=== PATIENT | male | born 1995 | race Caucasian/White ===

== ENCOUNTER 2019-08-06 17:31 | Emergency (ER) | payer BC ==
--- NOTE | 2019-08-06 17:43 | EDM.PDOC ---
ED HPI GENERAL MEDICAL PROBLEM - General Chief Complaint: Laceration Stated Complaint: CUT ON FINGER Time Seen by Provider: 08/06/19 17:43 Source of Information: Reports: Patient History Limitations: Reports: No Limitations - History of Present Illness INITIAL COMMENTS - FREE TEXT/NARRATIVE: HISTORY AND PHYSICAL: History of present illness: Patient is a 23-year-old male presents the ED with complaint of right middle finger laceration. He is approximately 7 hours prior to ED arrival patient cut his finger while putting away his pocket knife. He is uncertain of last tetanus. Records show that tetanus has been updated in the last 5 years. Review of systems: As per history of present illness and below otherwise all systems reviewed and negative. Past medical history: As per history of present illness and as reviewed below otherwise noncontributory. Surgical history: As per history of present illness and as reviewed below otherwise noncontributory. Social history: No reported history of drug or alcohol abuse. Family history: As per history of present illness and as reviewed below otherwise noncontributory. Physical exam: General: Patient sitting comfortably in no acute distress and nontoxic appearing HEENT: Atraumatic, normocephalic, pupils reactive, negative for conjunctival pallor or scleral icterus, mucous membranes moist, throat clear, neck supple, nontender, trachea midline. No meningeal signs. Lungs: Clear to auscultation, breath sounds equal bilaterally, chest nontender. Heart: S1S2, regular, negative for clicks, rubs, or overt murmur. Abdomen: Soft, nondistended, nontender. Negative for masses or hepatosplenomegaly. Negative for costovertebral tenderness. No rigidity, rebound , guarding. Pelvis: Stable nontender. Genitourinary: Deferred. Rectal: Deferred. Extremities: Flap-like laceration to the distal pad of the right third digit. Atraumatic, negative for cords or calf pain. Neurovascular unremarkable. Neuro: Awake, alert, oriented. Cranial nerves II through XII unremarkable. Cerebellum unremarkable. Motor and sensory unremarkable throughout. Exam nonfocal. Notes: Diagnostics: none Therapeutics: Laceration repair, see procedure note Prescriptions: Impression: Laceration Plan: Keep the area clean and dry as instructed Follow-up for suture removal in 7 to 10 days Return To ED as needed as discussed Definitive disposition and diagnosis as appropriate pending reevaluation and review of above. - Related Data Allergies Allergy/AdvReac Type Severity Reaction Status Date / Time amoxicillin [Amoxicillin] Allergy Itching Verified 08/06/19 17:38 Home Meds: Home Meds QUEtiapine [SEROquel] 50 mg PO BEDTIME 08/06/19 [History] Past Medical History HEENT History: Reports: Otitis Media Other HEENT History: right eye surgery for lazy eye Gastrointestinal History: Reports: None Musculoskeletal History: Reports: Fracture Neurological History: Reports: Concussion, Migraines, Seizure Psychiatric History: Reports: ADHD, Addiction, Anxiety, Depression, Suicidal Ideation - Infectious Disease History Infectious Disease History: Reports: Chicken Pox - Past Surgical History Musculoskeletal Surgical History: Reports: ORIF, Other (See Below) Social & Family History - Family History Family Medical History: Noncontributory - Caffeine Use Caffeine Use: Reports: Soda ED ROS GENERAL - Review of Systems Review Of Systems: Comprehensive ROS is negative, except as noted in HPI. ED EXAM, SKIN/RASH Exam: See Below (see dictation) ED SKIN PROCEDURES - Laceration/Wound Repair Right Digit - 3rd (Middle) Appearance: Superficial, Subcutaneous, Linear, Clean Distal NVT: Neuro & Vascular Intact, No Tendon Injury Anesthetic Type: Digital Local Anesthesia - Lidocaine (Xylocaine): 1% Plain Local Anesthetic Volume: 5cc Skin Prep: Chlorhexidine (Hibiciens), Saline Saline Irrigation (cc's): 250 Exploration/Debridement/Repair: Wound Explored, In a Bloodless Field, Explored to Base, No Foreign Material Found Closed with: Sutures Lac/Wound length In cm: 1.5 (cm) Suture Size: 5-0 # of Sutures: 5 Course - Vital Signs Last Recorded V/S: Last Vital Signs Temp 97.5 F 08/06/19 17:39 Pulse 105 H 08/06/19 17:39 Resp 17 08/06/19 17:39 BP 123/76 08/06/19 17:39 Pulse Ox 97 08/06/19 17:39 - Orders/Labs/Meds Meds: Medications Discontinued Medications Generic Name Dose Route Start Last Admin Trade Name Ashley PRN Reason Stop Dose Admin Lidocaine HCl 5 ml 08/06/19 17:53 Xylocaine-Mpf 1% INJECT 08/06/19 17:54 ONETIME ONE Departure - Departure Time of Disposition: 18:25 Disposition: Home, Self-Care 01 Condition: Good Clinical Impression: Laceration - Discharge Information Referrals: Irwin Berg MD [Primary Care Provider] - Forms: ED Department Discharge Additional Instructions: The following information is given to patients seen in the emergency department who are being discharged to home. This information is to outline your options for follow-up care. We provide all patients seen in our emergency department with a follow-up referral. The need for follow-up, as well as the timing and circumstances, are variable depending upon the specifics of your emergency department visit. If you don't have a primary care physician on staff, we will provide you with a referral. We always advise you to contact your personal physician following an emergency department visit to inform them of the circumstance of the visit and for follow-up with them and/or the need for any referrals to a consulting specialist. The emergency department will also refer you to a specialist when appropriate. This referral assures that you have the opportunity for follow-up care with a specialist. All of these measure are taken in an effort to provide you with optimal care, which includes your follow-up. Under all circumstances we always encourage you to contact your private physician who remains a resource for coordinating your care. When calling for follow-up care, please make the office aware that this follow-up is from your recent emergency room visit. If for any reason you are refused follow-up, please contact the [facility] Emergency Department at and asked to speak to the emergency department charge nurse. [facility] [address] [place] [id number] [id number] Keep the area clean and dry as instructed Follow-up for suture removal in 7 to 10 days Return To ED as needed as discussed Sepsis Event Note - Evaluation Sepsis Screening Result: No Definite Risk - Focused Exam Vital Signs: Vital Signs Temp Pulse Resp BP Pulse Ox 08/06/19 17:39 97.5 F 105 H 17 123/76 97 Date Exam was Performed: 08/06/19 Time Exam was Performed: 18:24
[2019-08-06 18:55] VITALS: BP 128/69; PULSE 83
== END 2019-08-06 18:35 | disposition home or self-care (01) ==
LOC: MW.ED 17:31
DX: S61.212A Laceration without foreign body of right middle finger without damage to nail, initial encounter (principal); Z88.1 Allergy status to other antibiotic agents; W26.0XXA Contact with knife, initial encounter
CPT/HCPCS: 12001; 99282

== ENCOUNTER 2019-08-13 12:45 | Emergency (ER) | payer BC ==
--- NOTE | 2019-08-13 12:58 | EDM.PDOC ---
ED HPI GENERAL MEDICAL PROBLEM - General Chief Complaint: Chest Pain Stated Complaint: CHEST PAIN Time Seen by Provider: 08/13/19 12:47 Source of Information: Reports: Patient History Limitations: Reports: No Limitations - History of Present Illness INITIAL COMMENTS - FREE TEXT/NARRATIVE: HISTORY AND PHYSICAL: History of present illness: Patient is a 23-year-old male who presents to the emergency room with complaints of chest pain, shortness of breath, cough and body aches x3 days. He reports he has been using [id number] medications without much relief. Patient denies any neck pain/stiffness, change in vision, syncope or near syncope. Denies any back pain or shortness of breath. Denies any abdominal pain , nausea, vomiting, diarrhea, constipation or dysuria. Patient has been eating and drinking appropriately. Review of systems: As per history of present illness and below otherwise all systems reviewed and negative. Past medical history: As per history of present illness and as reviewed below otherwise noncontributory. Surgical history: As per history of present illness and as reviewed below otherwise noncontributory. Social history: See social history for further information Family history: As per history of present illness and as reviewed below otherwise noncontributory. Physical exam: General: Well-developed and well-nourished 23-year-old male. Alert and oriented. Nontoxic-appearing and in no acute distress. HEENT: Atraumatic, normocephalic, pupils equal and reactive bilaterally, negative for conjunctival pallor or scleral icterus, mucous membranes moist, TMs normal bilaterally, throat clear, neck supple, nontender, trachea midline. No drooling or trismus noted. No meningeal signs. No hot potato voice noted. Lungs: Faint wheezing noted to the left posterior base slightly diminished otherwise clear to auscultation, breath sounds equal bilaterally, chest nontender. Heart: S1S2, regular rate and rhythm without overt murmur Abdomen: Soft, nondistended, nontender. Skin: Intact, warm, dry. No lesions or rashes noted. Extremities: Atraumatic, moves all extremities per self without difficulty or deficits, negative for cords or calf pain. Neurovascular unremarkable. Neuro: Awake, alert, oriented. Cranial nerves II through XII unremarkable. Cerebellum unremarkable. Motor and sensory unremarkable throughout. Exam nonfocal. Notes: Diagnostics are unremarkable. Medication and supportive care measures were reviewed and discussed. Voices understanding and is agreeable to plan of care. Denies any further questions or concerns at this time. Diagnostics: CXR, Influenza, EKG Therapeutics: Toradol Prescription: The pack and pro-air inhaler Impression: Bronchitis Plan: 1. Stop Smoking. standard contact precautions (covering mouth while coughing, avoid sharing drinking cups and eating utensils). Please make sure you're doing good handwashing 2. Please take medications as we discussed 3. Supportive care measures such as Tylenol and/or ibuprofen for pain and fever management.Encourage small frequent sips of fluids to prevent dehydration. 4. Follow-up with your mobile heavy equipment operator in the next 1-2 days. Return to the ED as needed and as discussed. Definitive disposition and diagnosis as appropriate pending reevaluation and review of above. Generalized Pain Score (Numeric/FACES): 7 - Related Data Allergies Allergy/AdvReac Type Severity Reaction Status Date / Time amoxicillin [Amoxicillin] Allergy Itching Verified 08/06/19 17:38 Home Meds: Home Meds QUEtiapine [SEROquel] 50 mg PO BEDTIME 08/06/19 [History] Past Medical History HEENT History: Reports: Otitis Media Other HEENT History: right eye surgery for lazy eye Gastrointestinal History: Reports: None Musculoskeletal History: Reports: Fracture Neurological History: Reports: Concussion, Migraines, Seizure Psychiatric History: Reports: ADHD, Addiction, Anxiety, Depression, Suicidal Ideation - Infectious Disease History Infectious Disease History: Reports: Chicken Pox - Past Surgical History Musculoskeletal Surgical History: Reports: ORIF, Other (See Below) Social & Family History - Family History Family Medical History: Noncontributory - Caffeine Use Caffeine Use: Reports: Soda ED ROS GENERAL - Review of Systems Review Of Systems: Comprehensive ROS is negative, except as noted in HPI. ED EXAM, GENERAL - Physical Exam Exam: See Below (See dictation) Course - Vital Signs Last Recorded V/S: Last Vital Signs Temp 99.1 F 08/13/19 12:54 Pulse 118 H 08/13/19 12:54 Resp 20 08/13/19 12:54 BP 127/79 08/13/19 12:54 Pulse Ox 96 08/13/19 12:54 - Orders/Labs/Meds Orders: Active Orders 24 hr Category Date Time Status EKG Documentation Completion [RC] STAT Care 08/13/19 12:47 Active Meds: Medications Discontinued Medications Generic Name Dose Route Start Last Admin Trade Name Ashley PRN Reason Stop Dose Admin Ketorolac Tromethamine 60 mg 08/13/19 13:26 08/13/19 13:45 Toradol IM 08/13/19 13:27 60 mg ONETIME ONE Administration Departure - Departure Time of Disposition: 14:13 Disposition: Home, Self-Care 01 Clinical Impression: Bronchitis Instructions: Upper Respiratory Infection, Adult, [id number] Referrals: PCP,Unobtain [Primary Care Provider] - Forms: ED Department Discharge Additional Instructions: The following information is given to patients seen in the emergency department who are being discharged to home. This information is to outline your options for follow-up care. We provide all patients seen in our emergency department with a follow-up referral. The need for follow-up, as well as the timing and circumstances, are variable depending upon the specifics of your emergency department visit. If you don't have a primary care physician on staff, we will provide you with a referral. We always advise you to contact your personal physician following an emergency department visit to inform them of the circumstance of the visit and for follow-up with them and/or the need for any referrals to a consulting specialist. The emergency department will also refer you to a specialist when appropriate. This referral assures that you have the opportunity for follow-up care with a specialist. All of these measure are taken in an effort to provide you with optimal care, which includes your follow-up. Under all circumstances we always encourage you to contact your private physician who remains a resource for coordinating your care. When calling for follow-up care, please make the office aware that this follow-up is from your recent emergency room visit. If for any reason you are refused follow-up, please contact the [facility] Emergency Department at and asked to speak to the emergency department charge nurse. [facility] [address] [place] [id number] [address] 1. Stop smoking. Please follow standard contact precautions (covering mouth while coughing, avoid sharing drinking cups and eating utensils). Please make sure you're doing good handwashing 2. Please take medications as we discussed 3. Supportive care measures such as Tylenol and/or ibuprofen for pain and fever management.Encourage small frequent sips of fluids to prevent dehydration. 4. Follow-up with your mobile heavy equipment operator in the next 1-2 days. Return to the ED as needed and as discussed. Sepsis Event Note - Focused Exam Vital Signs: Vital Signs Temp Pulse Resp BP Pulse Ox 08/13/19 12:54 99.1 F 118 H 20 127/79 96 Date Exam was Performed: 08/13/19 Time Exam was Performed: 14:14 - My Orders Last 24 Hours: My Active Orders 08/13/19 12:47 EKG Documentation Completion [RC] STAT - Assessment/Plan Last 24 Hours: My Active Orders 08/13/19 12:47 EKG Documentation Completion [RC] STAT
[2019-08-13] MEDS ORDERED: Ketorolac 60 MG/2 ML SDV IM ONE (13:26)
--- NOTE | 2019-08-13 13:47 | CR ---
Chest: 2 views of the chest were obtained. Comparison: Prior chest x-ray of 03/26/13. Heart size and mediastinum are normal. Lungs are clear. Bony structures are unremarkable. Impression: 1. Nothing acute is seen on 2 view chest x-ray. Diagnostic code #1 This report was dictated in [place] Standard Time
[2019-08-13 14:40] VITALS: BP 111/57; PULSE 100
== END 2019-08-13 14:46 | disposition home or self-care (01) ==
LOC: MW.ED 12:45
DX: J40 Bronchitis, not specified as acute or chronic (principal); Z88.1 Allergy status to other antibiotic agents
CPT/HCPCS: 71046; 87804; 93005; 96372; 99285; J1885; 99283

== ENCOUNTER 2020-01-10 18:51 | Emergency (ER) | payer OTHER ==
--- NOTE | 2020-01-10 19:43 | EDM.PDOC ---
ED HPI GENERAL MEDICAL PROBLEM - General Chief Complaint: General Stated Complaint: MEDICAL CLEARANCE Time Seen by Provider: 01/10/20 19:02 Source of Information: Reports: Patient History Limitations: Reports: No Limitations - History of Present Illness INITIAL COMMENTS - FREE TEXT/NARRATIVE: HISTORY AND PHYSICAL: History of present illness: Patient is a 24-year-old male who presents to the emergency room with law enforcement for a involuntary committal for alcohol and drug abuse. Law enforcement currently has a hold on him for polysubstance abuse. Law enforcement states that there was a court order as the patient has been injecting heroin, smoking methamphetamine, marijuana, prescription pain pills and abusing alcohol (last used yesterday). Patient currently offers no concerns or complaints. He is alert, oriented and answering questions appropriately. Review of systems: As per history of present illness and below otherwise all systems reviewed and negative. Past medical history: As per history of present illness and as reviewed below otherwise noncontributory. Surgical history: As per history of present illness and as reviewed below otherwise noncontr ibutory. Social history: See social history for further information Family history: As per history of present illness and as reviewed below otherwise noncontributory. Physical exam: General: Well-developed and well-nourished 24-year-old male. Alert and oriented. Answering questions appropriately. Nontoxic-appearing and in no acute distress. HEENT: Atraumatic, normocephalic, pupils equal and reactive bilaterally, negative for conjunctival pallor or scleral icterus, mucous membranes moist, TMs normal bilaterally, throat clear, neck supple, nontender, trachea midline. No drooling or trismus noted. No meningeal signs. No hot potato voice noted. Lungs: Clear to auscultation, breath sounds equal bilaterally, chest nontender. Heart: S1S2, regular rate and rhythm without overt murmur Abdomen: Soft, nondistended, nontender. Negative for masses or hepatosplenomegaly. Negative for costovertebral tenderness. Skin: Multiple superficial scratch rivers to upper extremities bilaterally. Intact, warm, dry. No lesions or rashes noted. Extremities: Atraumatic, moves all extremities per self without difficulty or deficits, negative for cords or calf pain. Neurovascular unremarkable. Neuro: Awake, alert, oriented. Cranial nerves II through XII unremarkable. Cerebellum unremarkable. Motor and sensory unremarkable throughout. Exam nonfocal. Notes: Patient has multiple superficial scratch rivers to bilateral arms. He states this was self-inflicted with a needle but was not intended to cause any self- harm. Reviewing the judicial order the letter from the licensed addiction counselor states that the patient was discharged from [facility] on my not after completing 28-day course of inpatient treatment. He was mandated to complete outpatient treatment which he had scheduled appointments, he missed his appointment with the counselor. The father became very concerned as he is "in fear he will overdose on drugs". Law enforcement filed for an application for modification of alternative treatment order. Lab work is unremarkable, drug screening is negative even though the patient states he used multiple substances yesterday. 2049: [facility] consulted on this patient- they do not offer alcohol and drug treatment programs 2050: [facility] unavailable beds 2051: [facility] in [place] consulted; unable to take patients on weekends. 2099: [facility] does not provide drug treatment programs. 2104: [facility] was consulted, they do not provide drug treatment programs. Law enforcement was made aware that we are having difficulty with finding placement for sole purpose of drug treatment programming. He did call his lieutenant who requested that the patient be brought back to the [place] [facility] and they will call in the morning to find placement for him. He did have lab work done here which was within normal limits. His vital signs have remained stable. He has been alert, oriented and answering questions appropriately. He can be discharged to the custody of law enforcement. Diagnostics: CBC, CMP, EKG, TSH, Acetaminophen, Salicylate, Drug Screen, UA, ETOH Therapeutics: None Prescription: None Impression: Encounter for medical screening exam Polysubstance abuse Plan: 1. Lab work that was done today is within normal limits. Vital signs remained stable. We did attempt to call facilities in [place] and [place] in [place], all of which did not have any beds available at this time. Please continue to pursue a treatment program for patient. 2. Continue to monitor patient and if any new symptoms develop or patient status should change, please return to the emergency room. Definitive disposition and diagnosis as appropriate pending reevaluation and review of above. - Related Data Allergies Allergy/AdvReac Type Severity Reaction Status Date / Time amoxicillin [Amoxicillin] Allergy Itching Verified 06/19/20 19:28 Home Meds: Home Meds QUEtiapine [SEROquel] 50 mg PO BEDTIME 08/06/19 [History] Past Medical History HEENT History: Reports: Otitis Media Other HEENT History: right eye surgery for lazy eye Gastrointestinal History: Reports: None Musculoskeletal History: Reports: Fracture Neurological History: Reports: Concussion, Migraines, Seizure Other Neuro History: Epilepsy, no meds undercontrol Psychiatric History: Reports: ADHD, Addiction, Anxiety, Depression, Suicidal Ideation - Infectious Disease History Infectious Disease History: Reports: Chicken Pox - Past Surgical History Musculoskeletal Surgical History: Reports: ORIF, Other (See Below) Social & Family History - Family History Family Medical History: Noncontributory - Tobacco Use Smoking Status *Q: Current Every Day Smoker Years of Tobacco use: 13 Packs/Tins Daily: 0.2 - Caffeine Use Caffeine Use: Reports: None - Recreational Drug Use Recreational Drug Type: Reports: Benzodiazepines, Heroin, Marijuana/Hashish, Methamphetamine ED ROS GENERAL - Review of Systems Review Of Systems: Comprehensive ROS is negative, except as noted in HPI. ED EXAM, GENERAL - Physical Exam Exam: See Below (See dictation) Course - Vital Signs Last Recorded V/S: Last Vital Signs Temp 97.8 F 01/10/20 19:24 Pulse 71 01/10/20 21:03 Resp 14 01/10/20 21:03 BP 137/83 01/10/20 21:03 Pulse Ox 99 01/10/20 21:03 - Orders/Labs/Meds Orders: Active Orders 24 hr Category Date Time Status EKG Documentation Completion [RC] STAT Care 01/10/20 19:32 Active Labs: Laboratory Tests 01/10/20 01/10/20 01/10/20 Range/Units 19:51 19:51 20:30 WBC 8.04 (4.0-11.0) K/uL RBC 4.55 (4.50-5.90) M/uL Hgb 13.5 (13.0-17.0) g/dL Hct 40.0 (38.0-50.0) % MCV 87.9 (80.0-98.0) fL MCH 29.7 (27.0-32.0) pg MCHC 33.8 (31.0-37.0) g/dL RDW Std Deviation 43.5 (28.0-62.0) fl RDW Coeff of Lore 14 (11.0-15.0) % Plt Count 315 (150-400) K/uL MPV 9.50 (7.40-12.00) fL Neut % (Auto) 46.1 L (48.0-80.0) % Lymph % (Auto) 38.2 (16.0-40.0) % [place] % (Auto) 13.2 (0.0-15.0) % Eos % (Auto) 2.1 (0.0-7.0) % Baso % (Auto) 0.4 (0.0-1.5) % Neut # (Auto) 3.7 (1.4-5.7) K/uL Lymph # (Auto) 3.1 H (0.6-2.4) K/uL [place] # (Auto) 1.1 H (0.0-0.8) K/uL Eos # (Auto) 0.2 (0.0-0.7) K/uL Baso # (Auto) 0.0 (0.0-0.1) K/uL Nucleated RBC % 0.0 /100WBC Nucleated RBCs # 0 K/uL Sodium 141 (136-148) mmol/L Potassium 3.5 (3.5-5.1) mmol/L Chloride 103 (98-107) mmol/L Carbon Dioxide 27.6 (21.0-32.0) mmol/L BUN 10 (7.0-18.0) mg/dL Creatinine 0.6 L (0.8-1.3) mg/dL Est Cr Clr Drug Dosing 175.96 mL/min Estimated GFR (MDRD) > 60.0 ml/min Glucose 94 (74-106) mg/dL Calcium 9.4 (8.5-10.1) mg/dL Total Bilirubin 0.4 (0.2-1.0) mg/dL AST 33 (15-37) IU/L ALT 37 (14-63) IU/L Alkaline Phosphatase 64 (46-116) U/L Total Protein 7.0 (6.4-8.2) g/dL Albumin 3.9 (3.4-5.0) g/dL Globulin 3.1 (2.6-4.0) g/dL Albumin/Globulin Ratio 1.3 (0.9-1.6) TSH 3rd Generation 1.34 (0.36-3.74) uIU/mL Urine Color Urine Appearance Urine pH (5.0-8.0) Ur Specific Adrian (1.001-1.035) Urine Protein (NEGATIVE) mg/dL Urine Glucose (UA) (NEGATIVE) mg/dL Urine Ketones (NEGATIVE) mg/dL Urine Occult Blood (NEGATIVE) Urine Nitrite (NEGATIVE) Urine Bilirubin (NEGATIVE) Urine Urobilinogen (<2.0) EU/dL Ur Leukocyte Esterase (NEGATIVE) Salicylates 0.4 (0-20) mg/dL Urine Opiates Screen NEGATIVE (NEGATIVE) Ur Oxycodone Screen NEGATIVE (NEGATIVE) Urine Methadone Screen NEGATIVE (NEGATIVE) Acetaminophen <2.0 ug/mL Ur Barbiturates Screen NEGATIVE (NEGATIVE) Ur Phencyclidine Scrn NEGATIVE (NEGATIVE) Ur Amphetamine Screen NEGATIVE (NEGATIVE) U Methamphetamines Scrn NEGATIVE (NEGATIVE) U Benzodiazepines Scrn NEGATIVE (NEGATIVE) U Cocaine Metab Screen NEGATIVE (NEGATIVE) U Marijuana (THC) Screen NEGATIVE (NEGATIVE) Ethyl Alcohol < 3.0 mg/dL 01/10/20 Range/Units 20:30 WBC (4.0-11.0) K/uL RBC (4.50-5.90) M/uL Hgb (13.0-17.0) g/dL Hct (38.0-50.0) % MCV (80.0-98.0) fL MCH (27.0-32.0) pg MCHC (31.0-37.0) g/dL RDW Std Deviation (28.0-62.0) fl RDW Coeff of Lore (11.0-15.0) % Plt Count (150-400) K/uL MPV (7.40-12.00) fL Neut % (Auto) (48.0-80.0) % Lymph % (Auto) (16.0-40.0) % [place] % (Auto) (0.0-15.0) % Eos % (Auto) (0.0-7.0) % Baso % (Auto) (0.0-1.5) % Neut # (Auto) (1.4-5.7) K/uL Lymph # (Auto) (0.6-2.4) K/uL [place] # (Auto) (0.0-0.8) K/uL Eos # (Auto) (0.0-0.7) K/uL Baso # (Auto) (0.0-0.1) K/uL Nucleated RBC % /100WBC Nucleated RBCs # K/uL Sodium (136-148) mmol/L Potassium (3.5-5.1) mmol/L Chloride (98-107) mmol/L Carbon Dioxide (21.0-32.0) mmol/L BUN (7.0-18.0) mg/dL Creatinine (0.8-1.3) mg/dL Est Cr Clr Drug Dosing mL/min Estimated GFR (MDRD) ml/min Glucose (74-106) mg/dL Calcium (8.5-10.1) mg/dL Total Bilirubin (0.2-1.0) mg/dL AST (15-37) IU/L ALT (14-63) IU/L Alkaline Phosphatase (46-116) U/L Total Protein (6.4-8.2) g/dL Albumin (3.4-5.0) g/dL Globulin (2.6-4.0) g/dL Albumin/Globulin Ratio (0.9-1.6) TSH 3rd Generation (0.36-3.74) uIU/mL Urine Color YELLOW Urine Appearance SLT CLOUDY Urine pH 6.5 (5.0-8.0) Ur Specific Adrian 1.025 (1.001-1.035) Urine Protein NEGATIVE (NEGATIVE) mg/dL Urine Glucose (UA) NEGATIVE (NEGATIVE) mg/dL Urine Ketones NEGATIVE (NEGATIVE) mg/dL Urine Occult Blood NEGATIVE (NEGATIVE) Urine Nitrite NEGATIVE (NEGATIVE) Urine Bilirubin NEGATIVE (NEGATIVE) Urine Urobilinogen 0.2 (<2.0) EU/dL Ur Leukocyte Esterase NEGATIVE (NEGATIVE) Salicylates (0-20) mg/dL Urine Opiates Screen (NEGATIVE) Ur Oxycodone Screen (NEGATIVE) Urine Methadone Screen (NEGATIVE) Acetaminophen ug/mL Ur Barbiturates Screen (NEGATIVE) Ur Phencyclidine Scrn (NEGATIVE) Ur Amphetamine Screen (NEGATIVE) U Methamphetamines Scrn (NEGATIVE) U Benzodiazepines Scrn (NEGATIVE) U Cocaine Metab Screen (NEGATIVE) U Marijuana (THC) Screen (NEGATIVE) Ethyl Alcohol mg/dL Departure - Departure Time of Disposition: 21:22 Disposition: Home, Self-Care 01 Clinical Impression: Polysubstance abuse, Encounter for medical screening examination - Discharge Information Instructions: Substance Use Disorder Referrals: Irwin Berg MD [Primary Care Provider] - Forms: ED Department Discharge Additional Instructions: The following information is given to patients seen in the emergency department who are being discharged to home. This information is to outline your options f or follow-up care. We provide all patients seen in our emergency department with a follow-up referral. The need for follow-up, as well as the timing and circumstances, are variable depending upon the specifics of your emergency department visit. If you don't have a primary care physician on staff, we will provide you with a referral. We always advise you to contact your personal physician following an emergency department visit to inform them of the circumstance of the visit and for follow-up with them and/or the need for any referrals to a consulting specialist. The emergency department will also refer you to a specialist when appropriate. This referral assures that you have the opportunity for follow-up care with a specialist. All of these measure are taken in an effort to provide you with optimal care, which includes your follow-up. Under all circumstances we always encourage you to contact your private physician who remains a resource for coordinating your care. When calling for follow-up care, please make the office aware that this follow-up is from your recent emergency room visit. If for any reason you are refused follow-up, please contact the [facility] Emergency Department at and asked to speak to the emergency department charge nurse. [facility] [address] [place] [id number] [facility] [address] [place] [id number] 1. Lab work that was done today is within normal limits. Vital signs remained stable. We did attempt to call facilities in [place] and [place] in [place], all of which did not have any beds available at this time. Please continue to pursue a treatment program for patient. 2. Continue to monitor patient and if any new symptoms develop or patient status should change, please return to the emergency room. Sepsis Event Note (ED) - Evaluation Sepsis Screening Result: No Definite Risk - Focused Exam Vital Signs: Vital Signs Temp Pulse Resp BP Pulse Ox 01/10/20 21:03 71 14 137/83 99 01/10/20 19:24 97.8 F 77 18 145/75 H 98 - My Orders Last 24 Hours: My Active Orders 01/10/20 19:32 EKG Documentation Completion [RC] STAT - Assessment/Plan Last 24 Hours: My Active Orders 01/10/20 19:32 EKG Documentation Completion [RC] STAT
[2020-01-10 20:27] LABS: ACETAMINOPHEN <2.0 ug/mL; BLOOD UREA NITROGEN,BUN 10 mg/dL (7.0-18.0); CARBON DIOXIDE,CO2 27.6 mmol/L (21.0-32.0); CHLORIDE,CL 103 mmol/L (98-107); GLUCOSE RANDOM 94 mg/dL (74-106); POTASSIUM,K 3.5 mmol/L (3.5-5.1); SODIUM,NA 141 mmol/L (136-148)
[2020-01-11 07:12] VITALS: BP 110/85; PULSE 90
== END 2020-01-10 21:31 ==
LOC: MW.ED 18:51
DX: F19.10 Other psychoactive substance abuse, uncomplicated (principal); S40.812A Abrasion of left upper arm, initial encounter; S40.811A Abrasion of right upper arm, initial encounter; F41.9 Anxiety disorder, unspecified; F32.9 Major depressive disorder, single episode, unspecified; Z88.1 Allergy status to other antibiotic agents; Z79.899 Other long term (current) drug therapy; F17.210 Nicotine dependence, cigarettes, uncomplicated
CPT/HCPCS: 36415; 80053; 80305-QW; 80307; 81003; 84443; 85025; 93005; 99283-25

== ENCOUNTER 2020-01-11 08:40 | Emergency (ER) | payer OTHER ==
[2020-01-11] MEDS ORDERED: Ibuprofen 400 MG Tab PO ONE (09:07)
[2020-01-11] MEDS ORDERED: Acetaminophen 500 MG Tab PO ONE (09:07)
--- NOTE | 2020-01-11 09:13 | EDM.PDOCBH ---
ED HPI GENERAL MEDICAL PROBLEM - General Chief Complaint: Behavioral/Psych Stated Complaint: MEDICAL CLEARANCE Time Seen by Provider: 01/11/20 08:42 Source of Information: Reports: Patient, Police History Limitations: Reports: No Limitations - History of Present Illness INITIAL COMMENTS - FREE TEXT/NARRATIVE: 24-year-old male past medical history of polysubstance abuse, remote history of a seizure disorder as a child presenting for medical clearance. Patient was seen in our emergency department yesterday in the custody of law enforcement, who requested medical clearance. The patient was on a legal hold for drug abuse and law enforcement was trying to find a treatment facility for him. He underwent extensive tox labs/work-up which were negative. The provider attempted to place the patient had multiple facilities throughout [place] but did not have success. The patient was subsequently discharged back to group home where law enforcement stated that they would attempt to place him at a substance treatment facility Today, he presents back to the emergency department with law enforcement. They deny any change in condition and have no acute emergency medical concerns other than noting that the patient was "shaky" while sleeping last night. They were concerned that he might be in drug withdrawal so they wanted him to be evaluated and continue pursuing placement at a substance treatment facility. The patient last used heroin and methamphetamine about 48 hours ago. He complains of mild achiness but denies nausea, vomiting, diaphoresis, tremors. Generalized Pain Score (Numeric/FACES): 6 - Related Data Allergies Allergy/AdvReac Type Severity Reaction Status Date / Time amoxicillin [Amoxicillin] Allergy Itching Verified 01/11/20 08:57 Home Meds: Home Meds QUEtiapine [SEROquel] 50 mg PO ASDIRECTED 08/06/19 [History] Sertraline [Zoloft] 01/11/20 [History] Varenicline Tartrate [Chantix] 01/11/20 [History] Past Medical History HEENT History: Reports: Otitis Media Other HEENT History: right eye surgery for lazy eye Gastrointestinal History: Reports: None Musculoskeletal History: Reports: Fracture Neurological History: Reports: Concussion, Migraines, Seizure Other Neuro History: Epilepsy, no meds undercontrol Psychiatric History: Reports: ADHD, Addiction, Anxiety, Depression, Suicidal Ideation - Infectious Disease History Infectious Disease History: Reports: Chicken Pox - Past Surgical History GI Surgical History: Reports: Appendectomy Musculoskeletal Surgical History: Reports: ORIF, Other (See Below) Other Musculoskeletal Surgeries/Procedures:: Plate in hand. broken thumb Social & Family History - Family History Family Medical History: Noncontributory - Tobacco Use Smoking Status *Q: Current Every Day Smoker Years of Tobacco use: 13 Packs/Tins Daily: 0.5 - Caffeine Use Caffeine Use: Reports: Coffee, Energy Drinks, Soda - Recreational Drug Use Recreational Drug Use: Yes Drug Use in Last 12 Months: Yes Recreational Drug Type: Reports: Heroin, Methamphetamine Recreational Drug Use Frequency: Daily ED ROS GENERAL - Review of Systems Review Of Systems: See Below Constitutional: Denies: Fever, Chills HEENT: Reports: No Symptoms Respiratory: Denies: Shortness of Breath Cardiovascular: Denies: Chest Pain Endocrine: Reports: No Symptoms GI/Abdominal: Denies: Abdominal Pain, Nausea, Vomiting : Reports: No Symptoms Musculoskeletal: Reports: No Symptoms Skin: Denies: Rash Neurological: Denies: Confusion, Headache, Tremors ED EXAM, BEHAVIORAL HEALTH - Physical Exam Exam: See Below Text/Narrative:: Vital signs reviewed. Nursing notes reviewed. Constitutional: Awake, alert, non-distressed. Head: Normocephalic, atraumatic. Eyes: EOMI, conjunctiva normal, no discharge, no scleral icterus. Ears, Nose, Throat: External ears and nose normal, moist oral mucosa. No tongue fasciculations Cardiovascular: 2+ radial pulse, capillary refill less than 2 seconds. RRR, no M/R/G Pulmonary: normal work of breathing, no accessory muscle use. CTA BL Abdomen/GI: Soft, nontender, nondistended, no guarding or rigidity, no masses. Musculoskeletal: No deformities. Integumentary: Appropriate color for ethnicity, warm, dry, no pallor or jaundice, no rash. Neurologic: Alert, answering questions appropriately, normal speech, no facial droop, moving all extremities well. No tremor Psychiatric: Appropriate mood and affect, normal thought process. COURSE, BEHAVIORAL HEALTH COMP - Course Vital Signs: Last Vital Signs Temp 35.9 C L 01/11/20 08:55 Pulse 95 01/11/20 08:55 Resp 17 01/11/20 08:55 BP 115/82 01/11/20 08:55 Pulse Ox 98 01/11/20 08:55 Orders, Labs, Meds: Medications Discontinued Medications Generic Name Dose Route Start Last Admin Trade Name Ashley PRN Reason Stop Dose Admin Acetaminophen 1,000 mg 01/11/20 09:07 01/11/20 09:12 Tylenol Extra Strength PO 01/11/20 09:08 1,000 mg ONETIME ONE Administration Ibuprofen 400 mg 01/11/20 09:07 01/11/20 09:12 Motrin PO 01/11/20 09:08 400 mg ONETIME ONE Administration Discharge vs Psych Eval/Treatment:: 24-year-old male presenting for medical clearance for placement at a substance treatment facility. Patient hemodynamically stable, afebrile, well-appearing, looks nontoxic. Patient has no acute complaints. Clinically, does not appear to be in drug or alcohol withdrawal. Given Tylenol Motrin for mild body aches. Given that he has been supervised in group home since his last ED encounter, we did not feel the need to repeat toxicology labs as the likelihood of subsequent ingestion is very low. I spoke with Dr. Pako Lawrence at [facility] in [place] who agrees to admit to his facility for substance abuse evaluation/treatment. Patient will be transferred there by ground ambulance. Transferred care to the ground EMS crew in good condition. 01/11/20 09:59 Departure - Departure Time of Disposition: 09:49 Disposition: DC/Tfer to Psych Hosp/Unit 65 Condition: Good Clinical Impression: Polysubstance dependence - Discharge Information Referrals: Irwin Berg MD [Primary Care Provider] - Forms: ED Department Discharge Sepsis Event Note (ED) - Evaluation Sepsis Screening Result: No Definite Risk - Focused Exam Vital Signs: Vital Signs Temp Pulse Resp BP Pulse Ox 01/11/20 08:55 35.9 C L 95 17 115/82 98
[2020-01-11 12:15] VITALS: BP 115/72; PULSE 80
== END 2020-01-11 09:55 ==
LOC: MW.ED 08:40
DX: F19.20 Other psychoactive substance dependence, uncomplicated (principal); G40.909 Epilepsy, unspecified, not intractable, without status epilepticus; F41.9 Anxiety disorder, unspecified; F32.9 Major depressive disorder, single episode, unspecified; Z79.899 Other long term (current) drug therapy; Z88.1 Allergy status to other antibiotic agents; F17.210 Nicotine dependence, cigarettes, uncomplicated
CPT/HCPCS: 99284; A9270; 99283

== ENCOUNTER 2020-07-22 03:09 | Emergency (ER) | payer BC, MEDICAID ==
[2020-07-22] MEDS ORDERED: Bupivacaine 0.5% 10 ML SDV ONE (04:01)
--- NOTE | 2020-07-22 04:15 | EDM.PDOC ---
ED HPI GENERAL MEDICAL PROBLEM - General Chief Complaint: ENT Problem Stated Complaint: TOOTH ACHE Time Seen by Provider: 07/22/20 03:18 - History of Present Illness INITIAL COMMENTS - FREE TEXT/NARRATIVE: CHIEF COMPLAINT(S): Tooth pain HISTORY OF PRESENT ILLNESS: This is a 24-year-old man without any significant past medical history who comes to the emergency department with a chief complaint of tooth pain. The patient states that for the last 3 days he has been experiencing tooth pain on his right lower molar. He states that he has a cavity in this area. He states that it is throbbing. He states that he took Advil which did not relieve the pain. He denies any fevers or chills. He denies any ear pain. He denies any purulent drainage. He denies any inability to open his mouth or any swelling. He states that he has not seen a dentist. He denies any other symptoms. REVIEW OF SYSTEMS: Constitutional: Denies fever, chills. Eyes: Denies eye pain Ears, Nose, Mouth, & Throat: Positive for right lower tooth pain. Denies earache, trismus, drooling, voice change Cardiovascular: Denies chest pain Respiratory: Denies shortness of breath Gastrointestinal: Denies Nausea, vomiting, diarrhea, hematochezia. Genitourinary: Denies hematuria Skin:Denies a rash Neurological: Denies blurred vision, numbness, tingling, weakness Psychiatric: Denies depression PAST MEDICAL HISTORY: As per history of present illness and as reviewed below otherwise noncontributory. SURGICAL HISTORY: As per history of present illness and as reviewed below otherwise noncontributory. SOCIAL HISTORY: As per history of present illness and as reviewed below otherwise noncontributory. FAMILY HISTORY: As per history of present illness and as reviewed below otherwise noncontributory. EXAMINATION OF ORGAN SYSTEMS/BODY AREAS: Constitutional: Blood pressure is 128/87, heart rate 74, respiratory rate 18 with an oxygen saturation 97% on room air. Temperature 35.9 General: Overall well-appearing young man who is in no acute distress Psychiatric: Appropriate mood and affect. Eyes: No scleral icterus or conjunctival erythema pupils are equal round reactive to light. Extraocular movements intact. ENMT: Moist mucous membranes. No pharyngeal erythema there is a large dental carry in the right molar area without any surrounding erythema or evidence of dental abscess. This area is tender to palpation along the dental carry. There is no other abnormality inside the mouth. There is no posterior auricular tenderness or swelling. Cardiovascular: Regular, rate, and rhythm. No gallops, murmurs, or rubs. Respiratory: Lungs clear to auscultation bilaterally. No wheezes, rales, or rhonchi. Gastrointestinal: Soft, non-tender, non-distended. Normoactive bowel sounds Genitourinary: No suprapubic tenderness Musculoskeletal: Normal range of motion. Skin: No lesions or abrasions. Neurological: Alert, GCS 15 MEDICAL DECISION MAKING AND COURSE IN THE ED WITH INTERPRETATION/REVIEW OF DIAGNOSTIC STUDIES: This is a 24-year-old and without any significant past medical history who comes to the emergency department with pain from a dental carry. At this time the patient's vitals are normal and there is no obvious evidence of infection or abscess to drain. At this time I did discuss doing an inferior alveolar block with the patient. He did consent verbally. Using 0.5% bupivacaine I did inject 1.5 cc near the inferior alveolar nerve. There was no evidence of complication. After period of observation, the patient did achieve pain control. I expressed the importance of following up with dentistry this week for management of the dental carry. He expressed understanding. He is to return to the emergency department for any new or worsening symptoms. DISPOSITION: The patient was discharged home in stable condition. The patient will follow up with dentist this week CONDITION: Fair PROCEDURES: Inferior alveolar nerve block FINAL IMPRESSION(S)/DIAGNOSES: 1. Acute tooth pain secondary to dental carry Luigi Sena M.D. dental pain Pain Score (Numeric/FACES): 7 - Related Data Allergies Allergy/AdvReac Type Severity Reaction Status Date / Time amoxicillin [Amoxicillin] Allergy Itching Verified 07/22/20 03:17 Home Meds: Home Meds QUEtiapine [SEROquel] 50 mg PO ASDIRECTED 08/06/19 [History] Past Medical History HEENT History: Reports: Otitis Media Other HEENT History: right eye surgery for lazy eye Gastrointestinal History: Reports: None Musculoskeletal History: Reports: Fracture Neurological History: Reports: Concussion, Migraines, Seizure Other Neuro History: Epilepsy, no meds undercontrol Psychiatric History: Reports: ADHD, Addiction, Anxiety, Depression, Suicidal Ideation - Infectious Disease History Infectious Disease History: Reports: Chicken Pox - Past Surgical History GI Surgical History: Reports: Appendectomy Musculoskeletal Surgical History: Reports: ORIF, Other (See Below) Other Musculoskeletal Surgeries/Procedures:: Plate in hand. broken thumb Social & Family History - Family History Family Medical History: No Pertinent Family History - Caffeine Use Caffeine Use: Reports: Coffee, Energy Drinks, Soda ED ROS GENERAL - Review of Systems Review Of Systems: See Below ED EXAM, GENERAL - Physical Exam Exam: See Below Course - Vital Signs Last Recorded V/S: Last Vital Signs Temp 35.9 C L 07/22/20 03:18 Pulse 74 07/22/20 03:18 Resp 18 07/22/20 03:18 BP 128/87 07/22/20 03:18 Pulse Ox 97 07/22/20 03:18 - Orders/Labs/Meds Meds: Medications Discontinued Medications Generic Name Dose Route Start Last Admin Trade Name Freq PRN Reason Stop Dose Admin Bupivacaine HCl Confirm 07/22/20 04:01 07/22/20 04:29 Sensorcaine-Mpf 0.5% Administered 07/22/20 04:02 Not Given Dose 10 ml .ROUTE .STK-MED ONE Bupivacaine HCl 10 ml 07/22/20 04:29 07/22/20 04:30 Sensorcaine-Mpf 0.5% INJECT 07/22/20 04:30 10 ml ONETIME ONE Administration Departure - Departure Time of Disposition: 04:13 Disposition: Home, Self-Care 01 Condition: Fair Clinical Impression: Dental caries - Discharge Information *PRESCRIPTION DRUG MONITORING PROGRAM REVIEWED*: No *COPY OF PRESCRIPTION DRUG MONITORING REPORT IN PATIENT NAHOMY: No Instructions: Preventive Dental Care, Adult Referrals: Irwin Berg MD [Primary Care Provider] - Forms: ED Department Discharge Additional Instructions: You were evaluated today on an emergent basis. At this time I do believe you are experiencing pain secondary to a cavity of your tooth. We did provide you with some pain relief here in the emergency department through a nerve block. I recommend follow-up with a dentist within 1 to 2 days. Please return to the emergency department for any new or worsening symptoms. The patient is informed of any results of their evaluation and diagnostic workup and all questions are answered. They are given discharge instructions and return precautions. The patient is stable for discharge. The patient states they understand and agree with the plan and that they will return if their symptoms get worse or if they have any new concerns. The following information is given to patients seen in the emergency department who are being discharged to home. This information is to outline your options for follow-up care. We provide all patients seen in our emergency department with a follow-up referral. The need for follow-up, as well as the timing and circumstances, are variable depending upon the specifics of your emergency department visit. If you don't have a primary care physician on staff, we will provide you with a referral. We always advise you to contact your personal physician following an emergency department visit to inform them of the circumstance of the visit and for follow-up with them and/or the need for any referrals to a consulting specialist. The emergency department will also refer you to a specialist when appropriate. This referral assures that you have the opportunity for follow-up care with a specialist. All of these measure are taken in an effort to provide you with optimal care, which includes your follow-up. Under all circumstances we always encourage you to contact your private physician who remains a resource for coordinating your care. When calling for follow-up care, please make the office aware that this follow-up is from your recent emergency room visit. If for any reason you are refused follow-up, please contact the [facility] Emergency Department at and asked to speak to the emergency department charge nurse. Sepsis Event Note (ED) - Evaluation Sepsis Screening Result: No Definite Risk - Focused Exam Vital Signs: Vital Signs Temp Pulse Resp BP Pulse Ox 07/22/20 03:18 35.9 C L 74 18 128/87 97
[2020-07-22] MEDS ORDERED: Bupivacaine 0.5% 10 ML SDV INJECT ONE (04:29)
[2020-07-22 06:06] VITALS: BP 100/60; PULSE 66
== END 2020-07-22 04:25 | disposition home or self-care (01) ==
LOC: MW.ED 03:09
DX: K02.9 Dental caries, unspecified (principal); Z88.0 Allergy status to penicillin
CPT/HCPCS: 64400; 99282; J3490; 99283

== ENCOUNTER 2020-08-10 16:25 | Emergency (ER) | payer MEDICAID, OTHER ==
--- NOTE | 2020-08-10 16:28 | EDM.PDOC ---
ED HPI GENERAL MEDICAL PROBLEM - General Stated Complaint: LEFT HAND FINGER INJURY Time Seen by Provider: 08/10/20 16:27 Source of Information: Reports: Patient History Limitations: Reports: No Limitations - History of Present Illness INITIAL COMMENTS - FREE TEXT/NARRATIVE: HISTORY AND PHYSICAL: History of present illness: Patient is a 24-year-old male who presents to the emergency room with complaints of a crush injury to his left index finger. 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 Tetanus has been updated within the last 5 years. He denies any other extremity involvement. He offers no systemic complaints. Review of systems: As per history of present illness and below otherwise all systems reviewed and negative. Past medical history: As per history of present illness and as reviewed below otherwise noncontributory. Surgical history: As per history of present illness and as reviewed below otherwise noncontributory. Social history: See social history for further information Family history: As per history of present illness and as reviewed below otherwise noncontributory. Physical exam: General: Well developed and well nourished. Alert and orientated x 3. Nontoxic in appearance and in no acute distress. Vital signs are stable and have been reviewed by me. Nursing notes were reviewed. HEENT: Atraumatic, normocephalic, pupils equal and reactive bilaterally, negative for conjunctival pallor or scleral icterus, mucous membranes moist, TMs normal bilaterally, throat clear, neck supple, nontender, trachea midline. No drooling or trismus noted. No meningeal signs. No hot potato voice noted. Lungs: Clear to auscultation bilaterally. No wheezes, rales, or rhonchi. Chest nontender. Normal work of breathing, no accessory muscles used. Heart: S1S2, regular rate and rhythm without overt murmur, gallops, or rubs. No JVD. No peripheral edema Skin: Skin avulsion to the pad of the left index finger, measuring approximately 1.5cm x 1 cm, not involving the nail bed. Otherwise skin is intact, warm, dry. No lesions or rashes noted. Hematologic: No petechiae or purpra. Mucosa appropriate color and normal nail bed color and refill. Extremities: Crush injury of the left index finger, although he moves all extremities per self without difficulty or deficits. Neurovascular unremarkable. Neuro: Awake, alert, oriented. Cranial nerves II through XII unremarkable. Cerebellum unremarkable. Motor and sensory unremarkable throughout. Exam nonfocal. Psychiatric: Mood and affect are appropriate. Normal thought process. Answering questions appropriately. Notes: *This patient was seen and evaluated during the 2019 SARS-CoV-2 novel cor onavirus pandemic period. Community viral transmission is ongoing at time of this encounter and the emergency department is operating under pandemic response procedures. X-ray shows no displaced fracture or dislocation. Mild superficial soft tissue swelling is noted. The skin avulsion is not appropriate for any type of closure, no active bleeding. A digital block was done so the site could be thoroughly cleansed and irrigated. Patient tolerated well. Nonstick bulky dressing applied for comfort. I have talked with the patient about today's findings, in addition to providing specific details for plan of care. Reassessment at the time of disposition demonstrates that the patient is in no acute distress. The patient is stable for discharge, counseling was provided and we discussed in great detail signs and symptoms that would prompt them to return to the Emergency Department. Medication, follow up and supportive care measures were reviewed and discussed. Voices understanding and is agreeable to plan of care. Denies any further questions or concerns at this time. Diagnostics: Finger x-ray Therapeutics: Lidocaine, bacitracin Prescription: None Impression: Skin avulsion Crush injury Plan: 1. Keep the area clean and dry. Continue to monitor for signs of infection. 2. Tylenol and/or ibuprofen as needed for pain management. 3. Please follow-up with your primary care provider in the next 1-2 days. Return to the ED as needed and as discussed. Definitive disposition and diagnosis as appropriate pending reevaluation and review of above. Left Finger-Index Pain Score (Numeric/FACES): 6 - Related Data Allergies Allergy/AdvReac Type Severity Reaction Status Date / Time amoxicillin [Amoxicillin] Allergy Itching Verified 08/10/20 16:30 Home Meds: Home Meds QUEtiapine [SEROquel] 50 mg PO ASDIRECTED 08/06/19 [History] Buprenorphine HCl/Naloxone HCl [Suboxone 12 mg-3 mg Sl Film] 14 mg DAILY 08/10/20 [History] Past Medical History HEENT History: Reports: Otitis Media Other HEENT History: right eye surgery for lazy eye Cardiovascular History: Reports: None Respiratory History: Reports: None Gastrointestinal History: Reports: None Musculoskeletal History: Reports: Fracture Neurological History: Reports: Concussion, Migraines, Seizure Other Neuro History: Epilepsy, no meds undercontrol Psychiatric History: Reports: ADHD, Addiction, Anxiety, Depression, Suicidal Ideation Endocrine/Metabolic History: Reports: None Insulin Pump Model and Scallop Cutter: None Hematologic History: Reports: None Immunologic History: Reports: None Oncologic (Cancer) History: Reports: None Dermatologic History: Reports: Angiodema - Infectious Disease History Infectious Disease History: Reports: Chicken Pox - Past Surgical History GI Surgical History: Reports: Appendectomy Musculoskeletal Surgical History: Reports: ORIF, Other (See Below) Other Musculoskeletal Surgeries/Procedures:: Plate in hand. broken thumb Social & Family History - Family History Family Medical History: No Pertinent Family History - Caffeine Use Caffeine Use: Reports: Coffee, Energy Drinks, Soda ED ROS GENERAL - Review of Systems Review Of Systems: Comprehensive ROS is negative, except as noted in HPI. ED EXAM, SKIN/RASH Exam: See Below (See dictation) ED SKIN PROCEDURES - Laceration/Wound Repair Left index finger Appearance: Superficial, Irregular (Skin avulsion) Distal NVT: Neuro & Vascular Intact, No Tendon Injury Anesthetic Type: Digital Local Anesthesia - Lidocaine (Xylocaine): 1% Plain Local Anesthetic Volume: 4cc Skin Prep: Chlorhexidine (Hibiciens), Saline Saline Irrigation (cc's): 250 Exploration/Debridement/Repair: Wound Explored, In a Bloodless Field, Explored to Base, No Foreign Material Found Closed with: Other (Cleaned and dressing applied. Not applicable for sutures) Lac/Wound length In cm: 1.5 (1 x 1.5 cm avulsion) Drain Placement: No Sterile Dressing Applied: None Tetanus Status Addressed: Yes Complications: No Course - Vital Signs Last Recorded V/S: Last Vital Signs Temp 97.5 F 08/10/20 16:32 Pulse 95 08/10/20 16:32 Resp 16 08/10/20 16:32 BP 142/93 H 08/10/20 16:32 Pulse Ox 98 08/10/20 16:32 - Orders/Labs/Meds Meds: Medications Discontinued Medications Generic Name Dose Route Start Last Admin Trade Name Freq PRN Reason Stop Dose Admin Bacitracin 1 dose 08/10/20 16:40 08/10/20 17:04 Bacitracin Oint 1 Gm TOP 08/10/20 16:41 1 dose ONETIME ONE Administration Lidocaine HCl 4 ml 08/10/20 16:40 08/10/20 17:04 Xylocaine-Mpf 1% INJECT 08/10/20 16:41 4 ml ONETIME ONE Administration Departure - Departure Time of Disposition: 17:18 Disposition: Home, Self-Care 01 Clinical Impression: Skin avulsion, Crush injury - Discharge Information Instructions: Crush Injury of the Hand, [id number], Laceration Care, Adult, [id number] Referrals: PCP,None [Primary Care Provider] - Additional Instructions: The following information is given to patients seen in the emergency department who are being discharged to home. This information is to outline your options for follow-up care. We provide all patients seen in our emergency department with a follow-up referral. The need for follow-up, as well as the timing and circumstances, are variable depending upon the specifics of your emergency department visit. If you don't have a primary care physician on staff, we will provide you with a referral. We always advise you to contact your personal physician following an emergency department visit to inform them of the circumstance of the visit and for follow-up with them and/or the need for any referrals to a consulting specialist. The emergency department will also refer you to a specialist when appropriate. This referral assures that you have the opportunity for follow-up care with a specialist. All of these measure are taken in an effort to provide you with optimal care, which includes your follow-up. Under all circumstances we always encourage you to contact your private physician who remains a resource for coordinating your care. When calling for follow-up care, please make the office aware that this follow-up is from your recent emergency room visit. If for any reason you are refused follow-up, please contact the [facility] Emergency Department at and asked to speak to the emergency department charge nurse. [facility] [address] [place] [id number] [address] [id number] Thank you for choosing the [facility] emergency department in [place] for your medical needs today. It was a pleasure caring for you. Today you were seen in the emergency department for crush injury/skin avulsion. 1. Keep the area clean and dry. Continue to monitor for signs of infection. 2. Tylenol and/or ibuprofen as needed for pain management. 3. Please follow-up with your primary care provider in the next 1-2 days. Return to the ED as needed and as discussed. Sepsis Event Note (ED) - Focused Exam Vital Signs: Vital Signs Temp Pulse Resp BP Pulse Ox 08/10/20 16:32 97.5 F 95 16 142/93 H 98
[2020-08-10 16:39] VITALS: BP 142/93; PULSE 95
[2020-08-10] MEDS ORDERED: Lidocaine 1% PF 2 ML SDV INJECT ONE (16:40)
[2020-08-10] MEDS ORDERED: Bacitracin Oint 1 GM U/D Packet TOP ONE (16:40)
--- NOTE | 2020-08-10 17:12 | CR ---
Indication: Crush injury Comparison: None available. Technique: AP, Lateral, and Oblique views left 2nd digit were obtained Findings: There is no displaced fracture or dislocation. The joint spaces are grossly preserved. There is mild superficial soft tissue laceration and superficial soft tissue swelling. Impression: Mild superficial soft tissue swelling and likely laceration of the distal 2nd soft tissues evidence of displaced fracture. Dictated by Nathan Guerrero MD @ Aug 10 2020 5:09PM Signed by Dr. Nathan Guerrero @ Aug 10 2020 5:10PM
== END 2020-08-10 17:35 | disposition home or self-care (01) ==
LOC: MW.ED 16:25
DX: S67.191A Crushing injury of left index finger, initial encounter (principal); S61.211A Laceration without foreign body of left index finger without damage to nail, initial encounter; Z88.0 Allergy status to penicillin; W23.0XXA Caught, crushed, jammed, or pinched between moving objects, initial encounter
CPT/HCPCS: 64450; 73140; 99283; J2001; 12001

== ENCOUNTER 2020-10-15 21:38 | Emergency (ER) | payer BC ==
[2020-10-15] MEDS ORDERED: Cephalexin 500 MG Cap PO ONE (22:22)
[2020-10-15] MEDS ORDERED: Bupivacaine 0.5% 10 ML SDV ONE (22:22)
[2020-10-15] MEDS ORDERED: Ibuprofen 600 MG Tab PO ONE (22:22)
[2020-10-15] MEDS ORDERED: Bupivacaine 0.5% 10 ML SDV INJECT ONE (22:22)
--- NOTE | 2020-10-15 22:33 | EDM.PDOC ---
ED HPI GENERAL MEDICAL PROBLEM - General Chief Complaint: ENT Problem Stated Complaint: SEVERE TOOTH PAIN Time Seen by Provider: 10/15/20 22:17 - History of Present Illness INITIAL COMMENTS - FREE TEXT/NARRATIVE: HISTORY AND PHYSICAL: History of present illness: This is a 24-year-old gentleman who presents ER today secondary to pain to his right lower molars. Patient reports that he is scheduled to have extraction tomorrow but is having too much pain to sleep tonight. Patient reports that he is on Suboxone who is requesting no narcotic pain medications. Patient denies any recent fevers, shakes, chills, nausea, vomiting, diarrhea. Patient reports that he is allergic amoxicillin but has had no problems with cephalexin in the past. Review of systems: As per history of present illness and below otherwise all systems reviewed and negative. Past medical history: As per history of present illness and as reviewed below otherwise noncontributory. Surgical history: As per history of present illness and as reviewed below otherwise noncontributory. Social history: No reported history of drug or alcohol abuse. Family history: As per history of present illness and as reviewed below otherwise noncontributory. Physical exam: This patient was seen and evaluated during the 2019 SARS-CoV-2 novel coronavirus pandemic period. Community viral transmission is ongoing at time of this encounter and the emergency department is operating under pandemic response procedures. Constitutional: Patient is oriented to person, place, and time. Appears well- developed and well-nourished. No distress. HEENT: Moist mucous membranes Head: Normocephalic and atraumatic Eyes: Right eye exhibits no discharge. Left eye exhibits no discharge. No scleral icterus Neck: Normal range of motion. No tracheal deviation present. Cardiovascular: Normal rate and regular rhythm. Pulmonary: Effort normal, no respiratory distress. Abdominal: No distention Musculoskeletal: Normal range of motion Neurologic: Alert and oriented to person, place and time. Skin: [place], warm and dry. Psychiatric: Normal mood and affect. Behavior is normal. Judgment and thought content normal. Nursing note and vital signs have been reviewed Patient's ER physical exam significant for cavitary fractured tooth in the right lower premolar. No abscess. No trismus. No airway compromise. No airway involvement. No evidence of Jd's angina. Diagnostics: [] Therapeutics: 2 cc of 0.5% bupivacaine injected into the right infra alveolar space for dental block. Assessment and plan: 24-year-old with dental pain secondary to dental cavities with fractured tooth. Dental block was performed with significant relief in pain and discomfort. Patient reports he feels much improved. Patient be discharged home with a prescription for Keflex and ibuprofen and will follow up with his dentist in the morning for definitive management. The following information is given to patients seen in the emergency department who are being discharged to home. This information is to outline your options for follow-up care. We provide all patients seen in our emergency department with a follow-up referral. The need for follow-up, as well as the timing and circumstances, are variable depending upon the specifics of your emergency department visit. If you don't have a primary care physician on staff, we will provide you with a referral. We always advise you to contact your personal physician following an emergency department visit to inform them of the circumstance of the visit and for follow-up with them and/or the need for any referrals to a consulting specialist. The emergency department will also refer you to a specialist when appropriate. This referral assures that you have the opportunity for follow-up care with a specialist. All of these measure are taken in an effort to provide you with optimal care, which includes your follow-up. Under all circumstances we always encourage you to contact your private physician who remains a resource for coordinating your care. When calling for follow-up care, please make the office aware that this follow-up is from your recent emergency room visit. If for any reason you are refused follow-up, please contact the [facility] Emergency Department at and asked to speak to the emergency department charge nurse. [facility] - Primary Care [address] [place] [id number] [address] Definitive disposition and diagnosis as appropriate pending reevaluation and review of above. right lower jaw Pain Score (Numeric/FACES): 8 - Related Data Allergies Allergy/AdvReac Type Severity Reaction Status Date / Time amoxicillin [Amoxicillin] Allergy Itching Verified 03/25/21 21:48 Home Meds: Home Meds QUEtiapine [SEROquel] 50 mg PO ASDIRECTED 08/06/19 [History] Buprenorphine HCl/Naloxone HCl [Suboxone 12 mg-3 mg Sl Film] 14 mg DAILY 08/10/20 [History] Non-Formulary Medication [NF Drug] 1 each INH ASDIRECTED 10/15/20 [History] Past Medical History HEENT History: Reports: Otitis Media Other HEENT History: right eye surgery for lazy eye Cardiovascular History: Reports: None Respiratory History: Reports: None Gastrointestinal History: Reports: None Musculoskeletal History: Reports: Fracture Neurological History: Reports: Concussion, Migraines, Seizure Other Neuro History: Epilepsy, no meds undercontrol Psychiatric History: Reports: ADHD, Addiction, Anxiety, Depression, Suicidal Ideation Endocrine/Metabolic History: Reports: None Insulin Pump Model and Nutritional Yeast Supervisor: None Hematologic History: Reports: None Immunologic History: Reports: None Oncologic (Cancer) History: Reports: None Dermatologic History: Reports: Angiodema - Infectious Disease History Infectious Disease History: Reports: Chicken Pox - Past Surgical History GI Surgical History: Reports: Appendectomy Neurological Surgical History: Reports: None Musculoskeletal Surgical History: Reports: ORIF, Other (See Below) Other Musculoskeletal Surgeries/Procedures:: Plate in hand. broken thumb Social & Family History - Family History Family Medical History: No Pertinent Family History - Tobacco Use Tobacco Use Status *Q: Current Every Day Tobacco User Years of Tobacco use: 12 Packs/Tins Daily: 1 - Caffeine Use Caffeine Use: Reports: Coffee - Recreational Drug Use Recreational Drug Use: No ED ROS GENERAL - Review of Systems Review Of Systems: See Below ED EXAM, GENERAL - Physical Exam Exam: See Below Course - Vital Signs Last Recorded V/S: Last Vital Signs Temp 98.2 F 10/15/20 21:49 Pulse 73 10/15/20 21:49 Resp 16 10/15/20 21:49 BP 97/64 10/15/20 21:49 Pulse Ox 97 10/15/20 21:49 - Orders/Labs/Meds Meds: Medications Discontinued Medications Generic Name Dose Route Start Last Admin Trade Name Freq PRN Reason Stop Dose Admin Bupivacaine HCl 10 ml 10/15/20 22:22 Bupivacaine 0.5% 10 Ml Sdv INJECT 10/15/20 22:23 ONETIME ONE Bupivacaine HCl Confirm 10/15/20 22:22 Bupivacaine 0.5% 10 Ml Sdv Administered 10/15/20 22:23 Dose 10 ml .ROUTE .STK-MED ONE Cephalexin 500 mg 10/15/20 22:22 Cephalexin 500 Mg Cap PO 10/15/20 22:23 ONETIME ONE Ibuprofen 600 mg 10/15/20 22:22 Ibuprofen 600 Mg Tab PO 10/15/20 22:23 ONETIME ONE Departure - Departure Time of Disposition: 22:28 Disposition: Home, Self-Care 01 Condition: Good Clinical Impression: Dental caries - Discharge Information Instructions: Dental Abscess, [id number], Dental Extraction, [id number] Referrals: PCP,None [Primary Care Provider] - Additional Instructions: Your seen and evaluated the ER today secondary to dental pain. You your given a dental block in the ED. You also be given a prescription for Keflex and ibuprofen to assist you with your pain. Please make sure that you keep your appointment tomorrow with your dentist for definitive management. The following information is given to patients seen in the emergency department who are being discharged to home. This information is to outline your options for follow-up care. We provide all patients seen in our emergency department with a follow-up referral. The need for follow-up, as well as the timing and circumstances, are variable depending upon the specifics of your emergency department visit. If you don't have a primary care physician on staff, we will provide you with a referral. We always advise you to contact your personal physician following an emergency department visit to inform them of the circumstance of the visit and for follow-up with them and/or the need for any referrals to a consulting specialist. The emergency department will also refer you to a specialist when appropriate. This referral assures that you have the opportunity for follow-up care with a specialist. All of these measure are taken in an effort to provide you with optimal care, which includes your follow-up. Under all circumstances we always encourage you to contact your private physician who remains a resource for coordinating your care. When calling for follow-up care, please make the office aware that this follow-up is from your recent emergency room visit. If for any reason you are refused follow-up, please contact the [facility] Emergency Department at and asked to speak to the emergency department charge nurse. [facility] - Primary Care [address] [place] [address] [facility] [address] [place] [id number] Sepsis Event Note (ED) - Evaluation Sepsis Screening Result: No Definite Risk - Focused Exam Vital Signs: Vital Signs Temp Pulse Resp BP Pulse Ox 10/15/20 21:49 98.2 F 73 16 97/64 97
[2020-10-15 22:41] VITALS: BP 114/52; PULSE 82
== END 2020-10-15 22:43 | disposition home or self-care (01) ==
LOC: MW.ED 21:38
DX: K02.9 Dental caries, unspecified (principal); K03.81 Cracked tooth
CPT/HCPCS: 64400; 99282; A9270; J3490

== ENCOUNTER 2020-11-25 19:14 | Emergency (ER) | payer BC ==
[2020-11-25] MEDS ORDERED: Sodium Chloride 0.9% 1,000 ML IV ONE ×3 (19:25→20:26)
--- NOTE | 2020-11-25 19:33 | PCM.EKG ---
#1 Interpretation EKG Date: 11/25/20 Time: 19:16 Rhythm: NSR Rate (Beats/Min): 102 [place]: Normal P-Wave: Present QRS: Normal ST-T: Normal QT: Normal Comparison: No Change (01/10/20) EKG Interpretation Comments: Sinus tachycardia
--- NOTE | 2020-11-25 20:11 | EDM.PDOC ---
ED HPI GENERAL MEDICAL PROBLEM - General Chief Complaint: Chest Pain Stated Complaint: CHEST PAIN, SHORTNESS OF BREATH Time Seen by Provider: 11/25/20 19:22 Source of Information: Reports: Patient History Limitations: Reports: No Limitations - History of Present Illness INITIAL COMMENTS - FREE TEXT/NARRATIVE: HISTORY AND PHYSICAL: History of present illness: Patient is a 25-year-old male who presents to the emergency room with complaints of chest pain/pressure. He states he was outside working all day in the heat. He felt well until he returned home and got out of the shower. He started having chest pressure and went to lay down. [place] like he had a panic attack with labored breathing, SOB, chest pain, diaphoretic). He states he does have a history of anxiety and medications for this. He did take a quarter of a prescribed medication and did feel some improvement. He presented to the emergency room to make sure "my heart is okay". Continues to have mild pressure to the chest. States he feels much calmer after taking the anxiety medication. Patient denies any fever, chills, headache, change in vision, syncope or near syncope. Denies any chest pain, back pain, shortness of breath or cough. Denies any abdominal pain, nausea, vomiting, diarrhea, constipation or dysuria. Has not noted any blood in urine or stool. Patient has been eating and drinking appro priately. Review of systems: As per history of present illness and below otherwise all systems reviewed and negative. Past medical history: As per history of present illness and as reviewed below otherwise noncontributory. Surgical history: As per history of present illness and as reviewed below otherwise noncontributory. Social history: See social history for further information Family history: As per history of present illness and as reviewed below otherwise noncontributory. Physical exam: General: Well developed and well nourished 25 year old male. Alert and orientated x 3. Nontoxic in appearance and in no acute distress. Vital signs are stable and have been reviewed by me. Nursing notes were reviewed. HEENT: Atraumatic, normocephalic, pupils equal and reactive bilaterally, negative for conjunctival pallor or scleral icterus, mucous membranes moist, TMs normal bilaterally, throat clear, neck supple, nontender, trachea midline. No drooling or trismus noted. No meningeal signs. No hot potato voice noted. Lungs: Clear to auscultation bilaterally. No wheezes, rales, or rhonchi. Chest nontender. Normal work of breathing, no accessory muscles used. Heart: S1S2, regular rate and rhythm without overt murmur, gallops, or rubs. No JVD. No peripheral edema Abdomen: Soft, nondistended, nontender. Normoactive bowel sounds. Negative for masses or costovertebral tenderness. Skin: Intact, warm, dry. No lesions or rashes noted. Hematologic: No petechiae or purpra. Mucosa appropriate color and normal nail bed color and refill. Extremities: Atraumatic, moves all extremities per self without difficulty or deficits, negative for cords or calf pain. Neurovascular unremarkable. Neuro: Awake, alert, oriented. Cranial nerves II through XII unremarkable. Cerebellum unremarkable. Motor and sensory unremarkable throughout. Exam nonfocal. Psychiatric: Mood and affect are appropriate. Normal thought process. Answering questions appropriately. Notes: *This patient was seen and evaluated during the 2019 SARS-CoV-2 novel coronavirus pandemic period. Community viral transmission is ongoing at time of this encounter and the emergency department is operating under pandemic response procedures. Patient's lab work is unremarkable with the exception of an elevated CPK. The patient does state that he did not drink any water today. I did recommend that we do a second liter of fluids. He has voided here while we have been in the emergency room. Light yellow in color and without difficulty. He declines a second liter of fluids stating he needs to return home and help take care of his child. Vital signs are stable I have talked with the patient about today's findings, in addition to providing specific details for plan of care. Reassessment at the time of disposition demonstrates that the patient is in no acute distress. The patient is stable for discharge, counseling was provided and we discussed in great detail signs and symptoms that would prompt them to return to the Emergency Department. Medication, follow up and supportive care measures were reviewed and discussed. Voices understanding and is agreeable to plan of care. Denies any further questions or concerns at this time. Diagnostics: CBC, CMP, Troponin, EKG, CXR, CPK Therapeutics: IV fluids Prescription: None Impression: Nonspecific chest pain Rhabdomyolysis, mild Plan: 1. You were evaluated today on an emergent basis. Your EKG, chest x-ray, and lab work is unremarkable with the exception that you have rhabdomyolysis (muscle break down). YOU MUST DRINK MORE WATER. If your symptoms should worsen, new symptoms (decreased urination or unable to pee) develop or any of the signs and symptoms we discussed should arise please return to the emergency room or call 911 (if needed). 2. You can alternate Tylenol and ibuprofen as needed for pain and fever management. 3. We encourage you to follow up with your primary care provider and/or recommended specialist in the next few days for re-evaluation and further care/management. Definitive disposition and diagnosis as appropriate pending reevaluation and review of above. Chest Pain Score (Numeric/FACES): 4 - Related Data Allergies Allergy/AdvReac Type Severity Reaction Status Date / Time amoxicillin [Amoxicillin] Allergy Itching Verified 11/25/20 19:18 Home Meds: Home Meds QUEtiapine [SEROquel] 50 mg PO ASDIRECTED 08/06/19 [History] Buprenorphine HCl/Naloxone HCl [Suboxone 12 mg-3 mg Sl Film] 1 dose DAILY 11/25/20 [History] Past Medical History - Past Health History Medical/Surgical History: Denies Medical/Surgical History HEENT History: Reports: Otitis Media Other HEENT History: right eye surgery for lazy eye Cardiovascular History: Reports: None Respiratory History: Reports: None Gastrointestinal History: Reports: None Musculoskeletal History: Reports: Fracture Neurological History: Reports: Concussion, Migraines, Seizure Other Neuro History: Epilepsy, no meds undercontrol Psychiatric History: Reports: ADHD, Addiction, Anxiety, Depression, Suicidal Ideation Endocrine/Metabolic History: Reports: None Insulin Pump Model and Sap Gatherer: None Hematologic History: Reports: None Immunologic History: Reports: None Oncologic (Cancer) History: Reports: None Dermatologic History: Reports: Angiodema - Infectious Disease History Infectious Disease History: Reports: Chicken Pox - Past Surgical History GI Surgical History: Reports: Appendectomy Neurological Surgical History: Reports: None Musculoskeletal Surgical History: Reports: ORIF, Other (See Below) Other Musculoskeletal Surgeries/Procedures:: Plate in hand. broken thumb Social & Family History - Family History Family Medical History: No Pertinent Family History - Tobacco Use Tobacco Use Status *Q: Current Every Day Tobacco User Years of Tobacco use: 10 Packs/Tins Daily: 1 - Caffeine Use Caffeine Use: Reports: Coffee, Energy Drinks, Soda - Recreational Drug Use Recreational Drug Use: Yes Drug Use in Last 12 Months: Yes Recreational Drug Type: Reports: Marijuana/Hashish Recreational Drug Use Frequency: Daily ED ROS GENERAL - Review of Systems Review Of Systems: Comprehensive ROS is negative, except as noted in HPI. ED EXAM, GENERAL - Physical Exam Exam: See Below (See dictation) Course - Vital Signs Last Recorded V/S: Last Vital Signs Temp 98.2 F 11/25/20 19:18 Pulse 90 11/25/20 20:38 Resp 18 11/25/20 19:18 BP 118/75 11/25/20 20:38 Pulse Ox 95 11/25/20 20:38 - Orders/Labs/Meds Labs: Laboratory Tests 11/25/20 11/25/20 Range/Units 19:40 19:40 WBC 8.45 (4.0-11.0) K/uL RBC 4.85 (4.50-5.90) M/uL Hgb 14.8 (13.0-17.0) g/dL Hct 41.9 (38.0-50.0) % MCV 86.4 (80.0-98.0) fL MCH 30.5 (27.0-32.0) pg MCHC 35.3 (31.0-37.0) g/dL RDW Std Deviation 40.7 (28.0-62.0) fl RDW Coeff of [place] 13 (11.0-15.0) % Plt Count 237 (150-400) K/uL MPV 10.60 (7.40-12.00) fL Neut % (Auto) 64.5 (48.0-80.0) % Lymph % (Auto) 23.0 (16.0-40.0) % [place] % (Auto) 10.2 (0.0-15.0) % Eos % (Auto) 1.5 (0.0-7.0) % Baso % (Auto) 0.8 (0.0-1.5) % Neut # (Auto) 5.5 (1.4-5.7) K/uL Lymph # (Auto) 1.9 (0.6-2.4) K/uL [place] # (Auto) 0.9 H (0.0-0.8) K/uL Eos # (Auto) 0.1 (0.0-0.7) K/uL Baso # (Auto) 0.1 (0.0-0.1) K/uL Nucleated RBC % 0.0 /100WBC Nucleated RBCs # 0 K/uL Sodium 140 (136-148) mmol/L Potassium 4.8 (3.5-5.1) mmol/L Chloride 104 (98-107) mmol/L Carbon Dioxide 29.3 (21.0-32.0) mmol/L BUN 15 (7.0-18.0) mg/dL Creatinine 0.9 (0.8-1.3) mg/dL Est Cr Clr Drug Dosing 103.74 mL/min Estimated GFR (MDRD) > 60.0 ml/min Glucose 93 (74-106) mg/dL Calcium 8.9 (8.5-10.1) mg/dL Total Bilirubin 0.6 (0.2-1.0) mg/dL AST 37 (15-37) IU/L ALT 24 (14-63) IU/L Alkaline Phosphatase 69 (46-116) U/L Creatine Kinase 995 H (26-308) U/L Troponin I < 0.050 (0.000-0.056) ng/mL Total Protein 7.5 (6.4-8.2) g/dL Albumin 4.2 (3.4-5.0) g/dL Globulin 3.3 (2.6-4.0) g/dL Albumin/Globulin Ratio 1.3 (0.9-1.6) Meds: Medications Discontinued Medications Generic Name Dose Route Start Last Admin Trade Name Freq PRN Reason Stop Dose Admin Sodium Chloride 1,000 mls @ 999 mls/hr 11/25/20 19:25 11/25/20 19:35 Normal Saline IV 11/25/20 20:25 999 mls/hr STAT ONE Administration Sodium Chloride 1,000 mls @ 999 mls/hr 11/25/20 20:23 11/25/20 20:32 Normal Saline IV 11/25/20 21:23 Not Given STAT ONE Sodium Chloride 1,000 mls @ 999 mls/hr 11/25/20 20:26 11/25/20 20:32 Normal Saline IV 11/25/20 21:26 Not Given STAT ONE Departure - Departure Time of Disposition: 20:29 Disposition: Home, Self-Care 01 Clinical Impression: Rhabdomyolysis Qualifiers: Rhabdomyolysis type: non-traumatic Qualified Code(s): M62.82 - Rhabdomyolysis Instructions: Nonspecific Chest Pain, Adult, [id number] Referrals: PCP,None [Primary Care Provider] - Forms: ED Department Discharge Additional Instructions: The following information is given to patients seen in the emergency department who are being discharged to home. This information is to outline your options for follow-up care. We provide all patients seen in our emergency department with a follow-up referral. The need for follow-up, as well as the timing and circumstances, are variable depending upon the specifics of your emergency department visit. If you don't have a primary care physician on staff, we will provide you with a referral. We always advise you to contact your personal physician following an emergency department visit to inform them of the circumstance of the visit and for follow-up with them and/or the need for any referrals to a consulting specialist. The emergency department will also refer you to a specialist when appropriate. This referral assures that you have the opportunity for follow-up care with a specialist. All of these measure are taken in an effort to provide you with optimal care, which includes your follow-up. Under all circumstances we always encourage you to contact your private physician who remains a resource for coordinating your care. When calling for follow-up care, please make the office aware that this follow-up is from your recent emergency room visit. If for any reason you are refused follow-up, please contact the [facility] Emergency Department at and asked to speak to the emergency department charge nurse. [facility] Primary Care [address] [place] [id number] [address] Thank you for choosing the [facility] emergency department in [place] for your medical needs today. It was a pleasure caring for you. Today you were seen in the emergency department for chest pain. 1. You were evaluated today on an emergent basis. Your EKG, chest x-ray, and lab work is unremarkable with the exception that you have rhabdomyolysis (muscle break down). YOU MUST DRINK MORE WATER. If your symptoms should worsen, new symptoms (decreased urination or unable to pee) develop or any of the signs and symptoms we discussed should arise please return to the emergency room or call 911 (if needed). 2. You can alternate Tylenol and ibuprofen as needed for pain and fever management. 3. We encourage you to follow up with your primary care provider and/or recommended specialist in the next few days for re-evaluation and further care/management. Sepsis Event Note (ED) - Evaluation Sepsis Screening Result: No Definite Risk - Focused Exam Vital Signs: Vital Signs Temp Pulse Resp BP Pulse Ox 11/25/20 20:38 90 118/75 95 11/25/20 19:18 98.2 F 106 H 18 137/84 96
[2020-11-25 20:19] LABS: BLOOD UREA NITROGEN,BUN 15 mg/dL (7.0-18.0); CARBON DIOXIDE,CO2 29.3 mmol/L (21.0-32.0); CHLORIDE,CL 104 mmol/L (98-107); GLUCOSE RANDOM 93 mg/dL (74-106); POTASSIUM,K 4.8 mmol/L (3.5-5.1); SODIUM,NA 140 mmol/L (136-148)
--- NOTE | 2020-11-25 20:29 | CR ---
Indication: Chest pain Technique: Chest 1 view Comparison: Chest x-ray 08/13/2019 Findings/Impression: Cardiovascular and mediastinum: Heart size and vasculature are normal in caliber and appearance. Lungs and pleural space: Lungs are clear. No sign of infiltrate or mass. No sign of pleural effusion. No pneumothorax. Bones and soft tissues: No acute findings. Dictated by Richard Bourne MD @ 11/25/2020 8:27:[address] Richard Bourne @ Nov 25 2020 8:27PM
[2020-11-25 20:57] VITALS: BP 118/75; PULSE 90
== END 2020-11-25 20:38 | disposition home or self-care (01) ==
LOC: MW.ED 19:14
DX: R07.9 Chest pain, unspecified (principal); M62.82 Rhabdomyolysis; Z72.0 Tobacco use; Z88.0 Allergy status to penicillin
CPT/HCPCS: 36415; 71045; 80053; 82550; 84484; 85025; 93005; 99285; J7030; 93010; 99284

== ENCOUNTER 2020-11-26 08:00 | Emergency (ER) | payer BC ==
[2020-11-26] MEDS ORDERED: Sodium Chloride 0.9% 2.5 ML Syringe FLUSH PRN (08:37)
[2020-11-26] MEDS ORDERED: Sodium Chloride 0.9% 1,000 ML IV ONE (08:37)
[2020-11-26] MEDS ORDERED: LORazepam 2 MG/ML SDV IVPUSH ONE (08:37)
[2020-11-26] MEDS ORDERED: Sodium Chloride 0.9% 10 ML Syringe FLUSH PRN (08:37)
--- NOTE | 2020-11-26 09:07 | EDM.PDOC ---
ED HPI GENERAL MEDICAL PROBLEM - General Chief Complaint: General Time Seen by Provider: 11/26/20 08:14 - History of Present Illness INITIAL COMMENTS - FREE TEXT/NARRATIVE: HISTORY AND PHYSICAL: History of present illness: This is a 25-year-old gentleman with history significant for anxiety disorder, polysubstance abuse, who is currently on Suboxone, Paxil, Seroquel who presents ER today secondary to feeling dehydrated and feeling like he is having an anxiety attack. Patient presents with his significant other for systems. Patient denies any recent fevers, shakes, chills, nausea, vomiting, diarrhea, dysuria, frequency, urgency. Patient reports that he has been try to drink plenty of fluids but for some reason he says he just is not able to keep hydrated. Patient was seen and evaluated in the ER yesterday secondary to possible dehydration and was noted to have an elevated CPK. Patient does work indoors and the facility that he was working it was extremely hot and he feels that he had gotten dehydrated yesterday. In the ED yesterday he received a full liter of NSS and refused a second liter that was recommended to him. Patient returns the ER today because he feels that he has not been able to adequately hydrate himself at home throughout the evening and is requesting his second liter of fluids here. Review of systems: As per history of present illness and below otherwise all systems reviewed and negative. Past medical history: As per history of present illness and as reviewed below otherwise noncontributory. Surgical history: As per history of present illness and as reviewed below otherwise noncontributory. Social history: No reported history of drug abuse. Family history: As per history of present illness and as reviewed below otherwise noncontributory. Physical exam: This patient was seen and evaluated during the 2019 SARS-CoV-2 novel coronavirus pandemic period. Community viral transmission is ongoing at time of this encounter and the emergency department is operating under pandemic response procedures. Constitutional: Patient is oriented to person, place, and time. Appears well- developed and well-nourished. No distress. HEENT: Moist mucous membranes Head: Normocephalic and atraumatic Eyes: Right eye exhibits no discharge. Left eye exhibits no discharge. No scleral icterus Neck: Normal range of motion. No tracheal deviation present. Cardiovascular: Normal rate and regular rhythm. Pulmonary: Effort normal, no respiratory distress. Abdominal: No distention Musculoskeletal: Normal range of motion Neurologic: Alert and oriented to person, place and time. Skin: [place], warm and dry. Psychiatric: Normal mood and affect. Behavior is normal. Judgment and thought content normal. Nursing note and vital signs have been reviewed Patient's ER physical exam is significant for a well-developed well-nourished extremely anxious appearing 25-year-old gentleman who is having bouts of crying and bouts of clear anxiety in the ED. Diagnostics: [] Therapeutics: NSS x1 L, patient refused Ativan but was agreeable to Benadryl 50 mg IV, Assessment and plan: This is a 25-year-old gentleman who presents ER today secondary to concerns of dehydration after being evaluated in the ED yesterday and refusing a second liter of saline. In the ED, the patient appears to be extremely anxious and is tearful. Patient was verbally redirected and appears to be much more calm now with the assistance of myself and his significant other prior to receiving his IV fluids. Unfortunately during the patient's evaluation, to stroke code have presented to the ED and there was a slight delay in care and getting the IV fluids into the patient. Patient will have a liter of NSS, a milligram of Ativan, basic labs including a repeat CPK and a urinalysis to assess for myoglobinuria. Patient will also have a urine drug screen to assess possible drug use. At this time, the patient is clinically hemodynamically stable but does appear to be still anxious and I believe he will benefit from the Ativan. Patient feels much improved after the IV fluids. Patient's repeat CPK is improved from yesterday. Patient will be discharged home with a prescription for Vistaril and instructions to follow-up with [facility]. Reassessment at the time of disposition demonstrates that the patient is in no acute distress. The patient has remained stable throughout the entire ED visit and is without objective evidence for acute process requiring urgent intervention or hospitalization. The patient is stable for discharge, counseling is provided as documented above, discussed symptomatic treatment and specific conditions for return. I have spoken with the patient/caregiver and discussed todays findings, in addition to providing specific details for the plan of care. Questions are answered and there is agreement with the plan. Definitive disposition and diagnosis as appropriate pending reevaluation and review of above. - Related Data Allergies Allergy/AdvReac Type Severity Reaction Status Date / Time amoxicillin [Amoxicillin] Allergy Itching Verified 11/26/20 08:19 Home Meds: Home Meds QUEtiapine [SEROquel] 50 mg PO ASDIRECTED 08/06/19 [History] Buprenorphine HCl/Naloxone HCl [Suboxone 12 mg-3 mg Sl Film] 1 dose DAILY 11/25/20 [History] PARoxetine [Paxil] 10 mg PO DAILY 11/26/20 [History] hydrOXYzine pamoate [Vistaril] 25 mg PO Q8H PRN #15 cap 11/26/20 [Rx] Past Medical History - Past Health History Medical/Surgical History: Denies Medical/Surgical History HEENT History: Reports: Otitis Media Other HEENT History: right eye surgery for lazy eye Cardiovascular History: Reports: None Respiratory History: Reports: None Gastrointestinal History: Reports: None Musculoskeletal History: Reports: Fracture Neurological History: Reports: Concussion, Migraines, Seizure Other Neuro History: Epilepsy, no meds undercontrol Psychiatric History: Reports: ADHD, Addiction, Anxiety, Depression, Suicidal Ideation Endocrine/Metabolic History: Reports: None 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 broken thumb Social & Family History - Family History Family Medical History: No Pertinent Family History - Tobacco Use Tobacco Use Status *Q: Current Every Day Tobacco User Years of Tobacco use: 10 Packs/Tins Daily: 1 - Caffeine Use Caffeine Use: Reports: Coffee, Energy Drinks, Soda - Recreational Drug Use Recreational Drug Use: Yes Recreational Drug Type: Reports: Marijuana/Hashish ED ROS GENERAL - Review of Systems Review Of Systems: See Below ED EXAM, GENERAL - Physical Exam Exam: See Below Course - Vital Signs Last Recorded V/S: Last Vital Signs Temp 97.0 F 11/26/20 08:21 Pulse 75 11/26/20 08:21 Resp 20 11/26/20 08:21 BP 123/73 11/26/20 08:21 Pulse Ox 100 11/26/20 08:21 - Orders/Labs/Meds Orders: Active Orders 24 hr Category Date Time Status DRUG SCREEN, URINE [URCHEM] Stat Lab 11/26/20 08:38 Ordered UA W/SULMA RFLX IF INDICATED [URIN] Stat Lab 11/26/20 08:38 Ordered Sodium Chloride 0.9% [Saline Flush] Med 11/26/20 08:37 Active 10 ml FLUSH ASDIRECTED PRN Sodium Chloride 0.9% [Saline Flush] Med 11/26/20 08:37 Active 2.5 ml FLUSH ASDIRECTED PRN Saline Lock Insert [OM.PC] Stat Oth 11/26/20 08:37 Ordered Medication Orders Sodium Chloride (Sodium Chloride 0.9% 10 Ml Syringe) 10 ml FLUSH ASDIRECTED PRN PRN Reason: Keep Vein Open Last Admin: 11/26/20 09:05 Dose: 10 ml Documented by: KWAME Sodium Chloride (Sodium Chloride 0.9% 2.5 Ml Syringe) 2.5 ml FLUSH ASDIRECTED PRN PRN Reason: Keep Vein Open Last Admin: 11/26/20 09:05 Dose: 2.5 ml Documented by: KWAME Labs: Laboratory Tests 11/26/20 11/26/20 Range/Units 09:07 09:07 WBC 6.14 (4.0-11.0) K/uL RBC 4.95 (4.50-5.90) M/uL Hgb 15.3 (13.0-17.0) g/dL Hct 42.7 (38.0-50.0) % MCV 86.3 (80.0-98.0) fL MCH 30.9 (27.0-32.0) pg MCHC 35.8 (31.0-37.0) g/dL RDW Std Deviation 41.3 (28.0-62.0) fl RDW Coeff of [place] 13 (11.0-15.0) % Plt Count 216 (150-400) K/uL MPV 11.10 (7.40-12.00) fL Neut % (Auto) 56.7 (48.0-80.0) % Lymph % (Auto) 27.9 (16.0-40.0) % [place] % (Auto) 11.1 (0.0-15.0) % Eos % (Auto) 2.8 (0.0-7.0) % Baso % (Auto) 1.5 (0.0-1.5) % Neut # (Auto) 3.5 (1.4-5.7) K/uL Lymph # (Auto) 1.7 (0.6-2.4) K/uL [place] # (Auto) 0.7 (0.0-0.8) K/uL Eos # (Auto) 0.2 (0.0-0.7) K/uL Baso # (Auto) 0.1 (0.0-0.1) K/uL Nucleated RBC % 0.0 /100WBC Nucleated RBCs # 0 K/uL Sodium 141 (136-148) mmol/L Potassium 4.2 (3.5-5.1) mmol/L Chloride 107 (98-107) mmol/L Carbon Dioxide 28.3 (21.0-32.0) mmol/L BUN 13 (7.0-18.0) mg/dL Creatinine 0.8 (0.8-1.3) mg/dL Est Cr Clr Drug Dosing 116.71 mL/min Estimated GFR (MDRD) > 60.0 ml/min Glucose 93 (74-106) mg/dL Calcium 8.8 (8.5-10.1) mg/dL Total Bilirubin 0.5 (0.2-1.0) mg/dL AST 33 (15-37) IU/L ALT 30 (14-63) IU/L Alkaline Phosphatase 70 (46-116) U/L Creatine Kinase 745 H (26-308) U/L Total Protein 7.2 (6.4-8.2) g/dL Albumin 4.0 (3.4-5.0) g/dL Globulin 3.2 (2.6-4.0) g/dL Albumin/Globulin Ratio 1.3 (0.9-1.6) Meds: Medications Generic Name Dose Route Start Last Admin Trade Name Freq PRN Reason Stop Dose Admin Sodium Chloride 10 ml 11/26/20 08:37 11/26/20 09:05 Sodium Chloride 0.9% 10 Ml Syringe FLUSH 10 ml ASDIRECTED PRN Administration Keep Vein Open Sodium Chloride 2.5 ml 11/26/20 08:37 11/26/20 09:05 Sodium Chloride 0.9% 2.5 Ml Syringe FLUSH 2.5 ml ASDIRECTED PRN Administration Keep Vein Open Discontinued Medications Generic Name Dose Route Start Last Admin Trade Name Ashley PRN Reason Stop Dose Admin Diphenhydramine HCl 50 mg 11/26/20 10:19 11/26/20 10:27 Diphenhydramine 50 Mg/Ml Sdv IVPUSH 11/26/20 10:20 50 mg ONETIME ONE Administration Sodium Chloride 1,000 mls @ 999 mls/hr 11/26/20 08:37 11/26/20 09:05 Normal Saline IV 11/26/20 09:37 999 mls/hr .Bolus ONE Administration Lorazepam 1 mg 11/26/20 08:37 11/26/20 09:09 Lorazepam 2 Mg/Ml Sdv IVPUSH 11/26/20 08:38 Not Given ONETIME ONE Departure - Departure Time of Disposition: 11:15 Disposition: Home, Self-Care 01 Condition: Good Clinical Impression: Dehydration, Anxiety - Discharge Information Instructions: Dehydration, Adult, [id number], Managing Anxiety, Adult Referrals: Irwin Berg MD [Primary Care Provider] - Forms: ED Department Discharge Additional Instructions: You were seen and evaluated in the ER today secondary to anxiety. You were given Benadryl and appears to have helped you. We will also write your prescription for Vistaril to help you until you are able to follow-up with a therapist. Please continue to drink plenty of fluids and get plenty rest. The following information is given to patients seen in the emergency department who are being discharged to home. This information is to outline your options for follow-up care. We provide all patients seen in our emergency department with a follow-up referral. The need for follow-up, as well as the timing and circumstances, are variable depending upon the specifics of your emergency department visit. If you don't have a primary care physician on staff, we will provide you with a referral. We always advise you to contact your personal physician following an emergency department visit to inform them of the circumstance of the visit and for follow-up with them and/or the need for any referrals to a consulting specialist. The emergency department will also refer you to a specialist when appropriate. This referral assures that you have the opportunity for follow-up care with a specialist. All of these measure are taken in an effort to provide you with optimal care, which includes your follow-up. Under all circumstances we always encourage you to contact your private physician who remains a resource for coordinating your care. When calling for follow-up care, please make the office aware that this follow-up is from your recent emergency room visit. If for any reason you are refused follow-up, please contact the [facility] Emergency Department at and asked to speak to the emergency department charge nurse. [facility] [address] [place] [address] [facility] [address] [place] [id number] Sepsis Event Note (ED) - Evaluation Sepsis Screening Result: No Definite Risk - Focused Exam Vital Signs: Vital Signs Temp Pulse Resp BP Pulse Ox 11/26/20 08:21 97.0 F 75 20 123/73 100 - My Orders Last 24 Hours: My Active Orders 11/26/20 08:37 Sodium Chloride 0.9% [Saline Flush] 10 ml FLUSH ASDIRECTED PRN Sodium Chloride 0.9% [Saline Flush] 2.5 ml FLUSH ASDIRECTED PRN Saline Lock Insert [OM.PC] Stat 11/26/20 08:38 DRUG SCREEN, URINE [URCHEM] Stat UA W/SULMA RFLX IF INDICATED [URIN] Stat - Assessment/Plan Last 24 Hours: My Active Orders 11/26/20 08:37 Sodium Chloride 0.9% [Saline Flush] 10 ml FLUSH ASDIRECTED PRN Sodium Chloride 0.9% [Saline Flush] 2.5 ml FLUSH ASDIRECTED PRN Saline Lock Insert [OM.PC] Stat 11/26/20 08:38 DRUG SCREEN, URINE [URCHEM] Stat UA W/SULMA RFLX IF INDICATED [URIN] Stat
[2020-11-26 09:52] LABS: BLOOD UREA NITROGEN,BUN 13 mg/dL (7.0-18.0); CARBON DIOXIDE,CO2 28.3 mmol/L (21.0-32.0); CHLORIDE,CL 107 mmol/L (98-107); GLUCOSE RANDOM 93 mg/dL (74-106); POTASSIUM,K 4.2 mmol/L (3.5-5.1); SODIUM,NA 141 mmol/L (136-148)
[2020-11-26] MEDS ORDERED: diphenhydrAMINE 50 MG/ML SDV IVPUSH ONE (10:19)
[2020-11-26 11:32] VITALS: BP 138/67; PULSE 60
== END 2020-11-26 11:28 | disposition home or self-care (01) ==
LOC: MW.ED 08:00
DX: E86.0 Dehydration (principal); F41.9 Anxiety disorder, unspecified; Z88.0 Allergy status to penicillin; Z79.899 Other long term (current) drug therapy; Z72.0 Tobacco use
CPT/HCPCS: 36415; 80053; 82550; 85025; 96374; 99284; J1200; J7030

== ENCOUNTER 2020-12-10 18:45 | Emergency (ER) | payer BC ==
[2020-12-10] MEDS ORDERED: Tetracaine HCl/PF 0.5% 4 ML Bottle EYEBOTH ONE (18:54)
--- NOTE | 2020-12-10 19:17 | EDM.PDOC ---
ED HPI GENERAL MEDICAL PROBLEM - General Chief Complaint: Eye Problems Stated Complaint: RIGHT EYE PAIN Time Seen by Provider: 12/10/20 18:56 Source of Information: Reports: Patient History Limitations: Reports: No Limitations - History of Present Illness INITIAL COMMENTS - FREE TEXT/NARRATIVE: 25-year-old male no past medical history presents for concern for foreign body in right eye. 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 He immediately flushed out the eye but still had a foreign body sensation. He denies any changes in vision. He notes a burning sensation. It feels like it is in the upper outer portion of the eye. Right Eye Pain Score (Numeric/FACES): 7 - Related Data Allergies Allergy/AdvReac Type Severity Reaction Status Date / Time amoxicillin [Amoxicillin] Allergy Itching Verified 12/10/20 19:16 Home Meds: Home Meds QUEtiapine [SEROquel] 50 mg PO ASDIRECTED 08/06/19 [History] Buprenorphine HCl/Naloxone HCl [Suboxone 12 mg-3 mg Sl Film] 1 dose DAILY 11/25/20 [History] PARoxetine [Paxil] 10 mg PO DAILY 11/26/20 [History] hydrOXYzine pamoate [Vistaril] 25 mg PO Q8H PRN #15 cap 11/26/20 [Rx] Polymyxin B Sulf/Trimethoprim [Polytrim Eye Drops] 10 ml OP Q6H 5 Days #2 drops 12/10/20 [Rx] Past Medical History - Past Health History Medical/Surgical History: Denies Medical/Surgical History HEENT History: Reports: Otitis Media Other HEENT History: right eye surgery for lazy eye Cardiovascular History: Reports: None Respiratory History: Reports: None Gastrointestinal History: Reports: None Musculoskeletal History: Reports: Fracture Neurological History: Reports: Concussion, Migraines, Seizure Other Neuro History: Epilepsy, no meds undercontrol Psychiatric History: Reports: ADHD, Addiction, Anxiety, Depression, Suicidal Ideation Endocrine/Metabolic History: Reports: None 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 broken thumb Social & Family History - Family History Family Medical History: No Pertinent Family History - Caffeine Use Caffeine Use: Reports: Coffee, Energy Drinks, Soda ED ROS GENERAL - Review of Systems Review Of Systems: Comprehensive ROS is negative, except as noted in HPI. ED EXAM GENERAL W FULL EYE - Physical Exam Exam: See Below Exam Limited By: No Limitations General Appearance: Alert, WD/WN, No Apparent Distress Eye Exam: Bilateral Eye: PERRL, Other (On fluorescein exam there is increased uptake in the 10 o'clock position of the right cornea and sclera, there are no foreign bodies noted including with eversion of the eyelid) Nose: Normal Inspection Throat/Mouth: Normal Voice, No Airway Compromise Head: Atraumatic, Normocephalic Neck: Normal Inspection Respiratory/Chest: No Respiratory Distress, No Accessory Muscle Use Cardiovascular: Normal Peripheral Pulses Extremities: Normal Inspection Neurological: Alert, Normal Gait Psychiatric: Normal Affect, Normal Mood Skin Exam: Warm, Dry, Intact, Normal Color Course - Vital Signs Last Recorded V/S: Last Vital Signs Temp 97.9 F 12/10/20 19:13 Pulse 94 12/10/20 19:13 Resp 16 12/10/20 19:13 BP 124/69 12/10/20 19:13 Pulse Ox 96 12/10/20 19:13 - Orders/Labs/Meds Orders: Active Orders 24 hr Category Date Time Status Vision Test [RC] ASDIRECTED Care 12/10/20 18:54 Active Meds: Medications Discontinued Medications Generic Name Dose Route Start Last Admin Trade Name Ashley PRN Reason Stop Dose Admin Tetracaine HCl 1 ml 12/10/20 18:54 12/10/20 19:26 Tetracaine Hcl/Pf 0.5% 4 Ml Bottle EYEBOTH 12/10/20 18:55 2 drop ASDIRECTED ONE Administration - Re-Assessments/Exams Free Text/Narrative Re-Assessment/Exam: 12/10/20 19:28 We will discharge with Polytrim drops for corneal abrasion. Departure - Departure Time of Disposition: 19:28 Disposition: Home, Self-Care 01 Condition: Good Clinical Impression: Corneal abrasion Qualifiers: Encounter type: initial encounter Laterality: right Qualified Code(s): S05.01XA - Injury of conjunctiva and corneal abrasion without foreign body, right eye, initial encounter - Discharge Information Prescriptions: Polymyxin B Sulf/Trimethoprim [Polytrim Eye Drops] 10 ml OP Q6H 5 Days #2 drops Instructions: Corneal Abrasion Referrals: Irwin Berg MD [Primary Care Provider] - Forms: ED Department Discharge Additional Instructions: The following information is given to patients seen in the emergency department who are being discharged to home. This information is to outline your options for follow-up care. We provide all patients seen in our emergency department with a follow-up referral. The need for follow-up, as well as the timing and circumstances, are variable depending upon the specifics of your emergency department visit. If you don't have a primary care physician on staff, we will provide you with a referral. We always advise you to contact your personal physician following an emergency department visit to inform them of the circumstance of the visit and for follow-up with them and/or the need for any referrals to a consulting specialist. The emergency department will also refer you to a specialist when appropriate. This referral assures that you have the opportunity for follow-up care with a specialist. All of these measure are taken in an effort to provide you with optimal care, which includes your follow-up. Under all circumstances we always encourage you to contact your private physician who remains a resource for coordinating your care. When calling for follow-up care, please make the office aware that this follow-up is from your recent emergency room visit. If for any reason you are refused follow-up, please contact the [facility] Emergency Department at and asked to speak to the emergency department charge nurse. Please follow up with your primary care physician. If you do not have a primary care physician, see below: [facility] [address] [place] [id number] [facility] [address] [place] [address] [facility] [address], [place] [address] Sepsis Event Note (ED) - Evaluation Sepsis Screening Result: No Definite Risk - Focused Exam Vital Signs: Vital Signs Temp Pulse Resp BP Pulse Ox 12/10/20 19:13 97.9 F 94 16 124/69 96
[2020-12-10 19:45] VITALS: BP 110/69; PULSE 88
== END 2020-12-10 19:45 | disposition home or self-care (01) ==
LOC: MW.ED 18:45
DX: S05.01XA Injury of conjunctiva and corneal abrasion without foreign body, right eye, initial encounter (principal); Z88.0 Allergy status to penicillin; W22.8XXA Striking against or struck by other objects, initial encounter
CPT/HCPCS: 99282; 99283

== ENCOUNTER 2021-04-07 10:23 | Emergency (ER) | payer OTHER, BC ==
--- NOTE | 2021-04-07 10:55 | EDM.PDOC ---
ED HPI GENERAL MEDICAL PROBLEM - General Chief Complaint: Upper Extremity Injury/Pain Stated Complaint: RIGHT HAND HURT AT WORK Time Seen by Provider: 04/07/21 10:38 Source of Information: Reports: Patient History Limitations: Reports: No Limitations - History of Present Illness INITIAL COMMENTS - FREE TEXT/NARRATIVE: HISTORY AND PHYSICAL: History of present illness: Patient is a 25-year-old male who presents to the emergency room with complaints of a crush injury to his right hand. He states the ulnar aspect of the right hand was crushed between 2 pieces of metal resulting in pain at the ulnar surface of the palm. He has full flexion and extension of the fingers and wrist although states applying any pressure to the palm itself causes increased pain. Denies any other extremity involvement. Patient denies any fever, chills, headache, change in vision, syncope or near syncope. Denies any chest pain, back pain, shortness of breath or cough. Denies any GI or symptoms. Patient has been eating and drinking appropriately. Review of systems: As per history of present illness and below otherwise all systems reviewed and negative. Past medical history: As per history of present illness and as reviewed below otherwise noncontributory. Surgical history: As per history of present illness and as reviewed below otherwise noncontributory. Social history: See social history for further information Family history: As per history of present illness and as reviewed below otherwise noncontributory. Physical exam: General: Well developed and well nourished 25-year-old male. Alert and orientated x 3. Nontoxic in appearance and in no acute distress. Vital signs are stable and have been reviewed by me. Nursing notes were reviewed. HEENT: Atraumatic, normocephalic, pupils equal and reactive bilaterally, negative for conjunctival pallor or scleral icterus, mucous membranes moist, TMs normal bilaterally, throat clear, neck supple, nontender, trachea midline. No drooling or trismus noted. No meningeal signs. No hot potato voice noted. Lungs: Clear to auscultation bilaterally. No wheezes, rales, or rhonchi. Chest nontender. Normal work of breathing, no accessory muscles used. Heart: S1S2, regular rate and rhythm without overt murmur, gallops, or rubs. No JVD. No peripheral edema Abdomen: Soft, nondistended, nontender. Skin: Intact, warm, dry. No lesions or rashes noted. Hematologic: No petechiae or purpra. Mucosa appropriate color and normal nail bed color and refill. Extremities: Pain with palpation at the base of the fifth right digit into the palmar surface. He moves all extremities per self without difficulty or deficits, full strength. Good flexion and extension of all fingers and at the wrist. Strong radial pulse. Cap refill less than 3 seconds. Positive CMS. Neurovascular unremarkable. Neuro: Awake, alert, oriented. Cranial nerves II through XII unremarkable. Cerebellum unremarkable. Motor and sensory unremarkable throughout. Exam nonfocal. Psychiatric: Mood and affect are appropriate. Normal thought process. Answering questions appropriately. Please note that the patient was seen and evaluated during the 2019 SARS-CoV-2 novel coronavirus pandemic period. Community viral transmission is ongoing at time of this encounter and the emergency department is operating under pandemic response procedures. Medical Decision Making: Patient is a 25-year-old male who presents to the emergency room with complaints of a crush injury to the right hand. He has good range of motion, flexion extension of the fingers and at the wrist. We will obtain an x-ray. Skin is intact. X-ray shows an old healed fracture right 5th metacarpal. Healed fracture right 4th metacarpal with a metal plate and multiple compression screws. No acute pathology. I have talked with the patient about today's findings, in addition to providing specific details for plan of care. Reassessment at the time of disposition demonstrates that the patient is in no acute distress. The patient is stable for discharge, counseling was provided and we discussed in great detail signs and symptoms that would prompt them to return to the Emergency Dep artment. Medication, follow up and supportive care measures were reviewed and discussed. Voices understanding and is agreeable to plan of care. Denies any further questions or concerns at this time. Diagnostics: Hand x-ray Therapeutics: Splint Prescription: None Impression: Crush injury, right hand Plan: 1. You were evaluated today on an emergent basis. Your x-ray shows not acute fracture. Rest, ice and elevate as able. Use splint for comfort. 2. You can alternate Tylenol and ibuprofen as needed for pain and fever management. 3. We encourage you to follow up with your primary care provider and/or recommended specialist in the next few days for re-evaluation and further care/management. 4. If your symptoms should worsen, new symptoms develop or any of the signs and symptoms we discussed should arise please return to the emergency room or call 911 (if needed). Definitive disposition and diagnosis as appropriate pending reevaluation and review of above. Right Hand Pain Score (Numeric/FACES): 6 - Related Data Allergies Allergy/AdvReac Type Severity Reaction Status Date / Time amoxicillin [Amoxicillin] Allergy Itching Verified 12/10/20 19:16 Home Meds: Home Meds QUEtiapine [SEROquel] 50 mg PO ASDIRECTED 08/06/19 [History] Buprenorphine HCl/Naloxone HCl [Suboxone 12 mg-3 mg Sl Film] 1 dose DAILY 11/25/20 [History] Past Medical History - Past Health History Medical/Surgical History: Denies Medical/Surgical History HEENT History: Reports: Otitis Media Other HEENT History: right eye surgery for lazy eye Cardiovascular History: Reports: None Respiratory History: Reports: None Gastrointestinal History: Reports: None Musculoskeletal History: Reports: Fracture Neurological History: Reports: Concussion, Migraines, Seizure Other Neuro History: Epilepsy, no meds undercontrol Psychiatric History: Reports: ADHD, Addiction, Anxiety, Depression, Suicidal Ideation Endocrine/Metabolic History: Reports: None Insulin Pump Model and Schedule Supervisor: None Hematologic History: Reports: None Immunologic History: Reports: None Oncologic (Cancer) History: Reports: None Dermatologic History: Reports: Angiodema - Infectious Disease History Infectious Disease History: Reports: Chicken Pox - Past Surgical History GI Surgical History: Reports: Appendectomy Neurological Surgical History: Reports: None Musculoskeletal Surgical History: Reports: ORIF, Other (See Below) Other Musculoskeletal Surgeries/Procedures:: Plate in hand. broken thumb Social & Family History - Family History Family Medical History: No Pertinent Family History - Caffeine Use Caffeine Use: Reports: Coffee, Energy Drinks, Soda Review of Systems - Review of Systems Review Of Systems: Comprehensive ROS is negative, except as noted in HPI. ED EXAM, GENERAL - Physical Exam Exam: See Below (See dictation) Course - Vital Signs Last Recorded V/S: Last Vital Signs Temp 98.7 F 04/07/21 11:23 Pulse 79 04/07/21 11:23 Resp 18 04/07/21 11:23 BP 118/62 04/07/21 11:23 Pulse Ox 96 04/07/21 11:23 - Orders/Labs/Meds Orders: Active Orders 24 hr Category Date Time Status DME for Discharge [COMM] Stat Oth 04/07/21 12:02 Ordered Departure - Departure Time of Disposition: 12:06 Disposition: Home, Self-Care 01 Clinical Impression: Crush injury of hand Qualifiers: Encounter type: initial encounter Laterality: right Qualified Code(s): S67.21XA - Crushing injury of right hand, initial encounter - Discharge Information Instructions: Crush Injury of the Hand Referrals: Irwin Berg MD [Primary Care Provider] - Forms: ED Department Discharge Additional Instructions: The following information is given to patients seen in the emergency department who are being discharged to home. This information is to outline your options for follow-up care. We provide all patients seen in our emergency department with a follow-up referral. The need for follow-up, as well as the timing and circumstances, are variable depending upon the specifics of your emergency department visit. If you don't have a primary care physician on staff, we will provide you with a referral. We always advise you to contact your personal physician following an emergency department visit to inform them of the circumstance of the visit and for follow-up with them and/or the need for any referrals to a consulting specialist. The emergency department will also refer you to a specialist when appropriate. This referral assures that you have the opportunity for follow-up care with a specialist. All of these measure are taken in an effort to provide you with optimal care, which includes your follow-up. Under all circumstances we always encourage you to contact your private physician who remains a resource for coordinating your care. When calling for follow-up care, please make the office aware that this follow-up is from your recent emergency room visit. If for any reason you are refused follow-up, please contact the [facility] at and asked to speak to the emergency department charge nurse. [facility] [address] [place] [id number] [facility] [address] [place] [address] Thank you for choosing the [facility] emergency department in [place] for your medical needs today. It was a pleasure caring for you. Today you were seen in the emergency department for crush injury. 1. You were evaluated today on an emergent basis. Your x-ray shows not acute f racture. Rest, ice and elevate as able. Use splint for comfort. 2. You can alternate Tylenol and ibuprofen as needed for pain and fever management. 3. We encourage you to follow up with your primary care provider and/or recommended specialist in the next few days for re-evaluation and further care/management. 4. If your symptoms should worsen, new symptoms develop or any of the signs and symptoms we discussed should arise please return to the emergency room or call 911 (if needed). Sepsis Event Note (ED) - Focused Exam Vital Signs: Vital Signs Temp Pulse Resp BP Pulse Ox 04/07/21 11:23 98.7 F 79 18 118/62 96 04/07/21 11:14 98.4 F 83 18 142/92 H 98 - My Orders Last 24 Hours: My Active Orders 04/07/21 12:02 DME for Discharge [COMM] Stat - Assessment/Plan Last 24 Hours: My Active Orders 04/07/21 12:02 DME for Discharge [COMM] Stat
--- NOTE | 2021-04-07 11:57 | CR ---
INDICATION: Crush injury right hand. COMPARISON: Three view study right hand February 04, 2015. TECHNIQUE: Three-view study right hand. FINDINGS: Internal fixation of a fracture of the 4th metacarpal with a plate and multiple compression screws; stable without any change. Deformity right 5th metacarpal secondary to an old healed fracture. No evidence of acute fracture or dislocation. No other bone or soft tissue abnormalities. IMPRESSION: 1. Old healed fracture right 5th metacarpal. 2. Healed fracture right 4th metacarpal with a metal plate and multiple compression screws. 3. No acute pathology. Dictated by Roberta Ambrose MD @ 04/07/2021 11:55:38 AM (Electronically Signed)
[2021-04-07 12:49] VITALS: BP 118/64; PULSE 73
== END 2021-04-07 12:50 | disposition home or self-care (01) ==
LOC: MW.ED 10:23
DX: S67.21XA Crushing injury of right hand, initial encounter (principal); Z88.0 Allergy status to penicillin; W23.0XXA Caught, crushed, jammed, or pinched between moving objects, initial encounter; Y99.0 Civilian activity done for income or pay
CPT/HCPCS: 29125; 73130-26-RT; 73130-RT; 99283-25

== ENCOUNTER 2022-05-06 12:10 | Emergency (ER) | payer BC, OTHER ==
[2022-05-06 16:09] VITALS: BP 132/57; PULSE 95
== END 2022-05-06 16:32 | disposition home or self-care (01) ==
LOC: MW.ED 12:10
DX: S60.512A Abrasion of left hand, initial encounter (principal); S69.92XA Unspecified injury of left wrist, hand and finger(s), initial encounter; Z88.0 Allergy status to penicillin; Z90.49 Acquired absence of other specified parts of digestive tract; W23.1XXA Caught, crushed, jammed, or pinched between stationary objects, initial encounter
CPT/HCPCS: 73120-26-LT; 73120-LT; 99282; 99283

== ENCOUNTER 2023-04-27 23:15 | Emergency (ER) | payer MEDICAID, OTHER ==
[2023-04-28 00:52] VITALS: BP 120/76; PULSE 87
== END 2023-04-28 00:52 ==
LOC: MW.ED 23:15
DX: Z02.89 Encounter for other administrative examinations (principal); Z88.0 Allergy status to penicillin
CPT/HCPCS: 99283